=== PATIENT | male | born 1970 | race American Indian/Alaskan Native ===

== ENCOUNTER 2018-11-25 11:31 | Emergency (ER) | payer OTHER ==
[2018-11-25 11:44] VITALS: BP 155/104
--- NOTE | 2018-11-25 11:48 | Emergency Department Report ---
Blank Doc - Documentation Documentation: presents with cc of yesterday vomitting/ flank pain, states went to [place] yes terday, was scanned and dx with GB stones/acute kidney injury, has paperwork in hand states nausea and pain is not resolved This initial assessment diagnostic orders/clinical plan/treatment (s) is/Are subject change based on patient's health status, clinical progression and re- assessment by fellow clinical providers in the ED. Further treatment and work-up at subsequent clinical providers discretion. Patient/guardians urged not to elope from their condition may be serious if not clinically assessed and managed. Initial order include: ua,cbc,cmp ACC evaluate
[2018-11-25 12:51] LABS: Basophils % (Auto) 0.2 % (0.0-1.8); Eosinophils % (Auto) 0.7 % (0.0-4.3); Hematocrit 50.2 % (35.5-45.6); Lymphocytes # (Auto) 0.6 K/mm3 (1.2-5.4); Lymphocytes % (Auto) 9.7 % (13.4-35.0); Mean Corpuscular HGB Conc 34 % (32-34); Mean Corpuscular Volume 83 fl (84-94); Monocytes # (Auto) 0.5 K/mm3 (0.0-0.8); Monocytes % (Auto) 8.6 % (0.0-7.3); Platelet Count 146 K/mm3 (140-440); Red Blood Count 6.03 M/mm3 (3.65-5.03); Red Cell Distribution Width 13.6 % (13.2-15.2)
[2018-11-25 13:09] LABS: Albumin 3.8 g/dL (3.9-5); Calcium 8.8 mg/dL (8.4-10.2)
[2018-11-25] MEDS ORDERED: NACL 0.9% 1000 ML 1,000 ML IV ONE (14:30)
--- NOTE | 2018-11-25 14:31 | Emergency Department Report ---
Vomiting/Diarrhea - HPI Chief Complaint: Nausea/Vomiting/Diarrhea Stated Complaint: VOMITING/BACK PAIN Time Seen by Provider: 11/25/18 11:40 Duration: 2 Days Severity: moderate Nausea/Vomiting Severity: Moderate Diarrhea Severity: None Pain Location: Generalized Pain Severity: Moderate Symptoms: Yes Able to Tolerate Fluids, No Watery Diarrhea, No Bloody diarrhea, No Fever, No Recent Unusual Foods, No Recent Untreated Water, No Recent use of Antibiotics, No Family w/ Similar Symptoms, No Contacts w/ Similar Symptoms, No Rash, No Hematuria, No Recent URI Symptoms Other History: This is a 48-year-old -[place] male presents with nausea and vomiting, and abdominal pain since yesterday. Patient states he woke up yesterday morning around 3 AM nauseous and sharp abdominal pain. Patient states shortly after he started vomiting every 10-15 minutes. She went to [place] around 11 AM and was diagnosed with kidney stones. Patient states she was given several IV fluid and pain medication and sent home with tramadol and Zofran. Patient states Zofran 4 and an tramadol is not controllable symptoms. He is still vomiting every 15-20 minutes. He wanted to know if he can have surgery to remove kidney stones. He denies fever, diarrhea, chest pain, or lighthead edness. ED Review of Systems ROS: Stated complaint: VOMITING/BACK PAIN Other details as noted in HPI Constitutional: denies: chills, fever Respiratory: denies: cough, shortness of breath, wheezing Cardiovascular: denies: chest pain, palpitations Gastrointestinal: abdominal pain, nausea, vomiting. denies: diarrhea Genitourinary: denies: urgency, dysuria Skin: denies: rash, lesions Neurological: denies: headache, weakness, paresthesias Psychiatric: denies: anxiety, depression ED Past Medical Hx - Past Medical History Previous Medical History?: No - Surgical History Past Surgical History?: No - Social History Smoking Status: Never Smoker Substance Use Type: Alcohol Vomiting Diarrhea Exam - Exam General: Vital signs noted. No distress. Alert and acting appropriately. HEENT: Yes Moist Mucous Membranes, No Pharyngeal Erythema, No Pharyngeal Exudates, No Rhinorrhea, No Conjuctival Injection, No Frontal Tenderness, No Maxillary Tenderness Neck: No Adenopathy, No Rigidity Lungs: Yes Clear Lung Sounds, Yes Good Air Exchange, No Wheezes, No Stridor, No Cough, No Nasal Flaring, No Retractions, No Use of Accessory Muscles Heart exam: Regular: Yes, Murmur: No, Tachycardia: No Abdomen: Tenderness: Yes (left lower quadrant), Peritoneal Signs: No, Distention: No, Hyperactive Bowel sounds: No Skin exam: Rash: No, Edema: No, Normal turgor: Yes Neurologic: Alert and oriented, no deficits. Musculoskeletal: Unremarkable. ED Course Vital Signs 11/25/18 11:40 Temperature 98.1 F Pulse Rate 88 Respiratory 20 Rate Blood Pressure 155/104 O2 Sat by Pulse 96 Oximetry ED Medical Decision Making - Lab Data Result diagrams: 11/25/18 12:33 11/25/18 12:33 Lab Results 11/25/18 11/25/18 Range/Units 12:33 12:33 WBC 5.8 (4.5-11.0) K/mm3 RBC 6.03 H (3.65-5.03) M/mm3 Hgb 17.0 H (11.8-15.2) gm/dl Hct 50.2 H (35.5-45.6) % MCV 83 L (84-94) fl MCH 28 (28-32) pg MCHC 34 (32-34) % RDW 13.6 (13.2-15.2) % Plt Count 146 (140-440) K/mm3 Lymph % (Auto) 9.7 L (13.4-35.0) % Hutchinson % (Auto) 8.6 H (0.0-7.3) % Eos % (Auto) 0.7 (0.0-4.3) % Baso % (Auto) 0.2 (0.0-1.8) % Lymph # 0.6 L (1.2-5.4) K/mm3 Hutchinson # 0.5 (0.0-0.8) K/mm3 Eos # 0.0 (0.0-0.4) K/mm3 Baso # 0.0 (0.0-0.1) K/mm3 Seg Neutrophils % 80.8 H (40.0-70.0) % Seg Neutrophils # 4.7 (1.8-7.7) K/mm3 Sodium 135 L (137-145) mmol/L Potassium 4.2 (3.6-5.0) mmol/L Chloride 99.2 (98-107) mmol/L Carbon Dioxide 23 (22-30) mmol/L Anion Gap 17 mmol/L BUN 25 H (9-20) mg/dL Creatinine 1.9 H (0.8-1.5) mg/dL Estimated GFR 38 ml/min BUN/Creatinine Ratio 13 % Glucose 145 H (75-100) mg/dL Calcium 8.8 (8.4-10.2) mg/dL Total Bilirubin 1.20 (0.1-1.2) mg/dL AST 51 H (5-40) units/L ALT 37 (7-56) units/L Alkaline Phosphatase 58 (35-129) units/L Total Protein 7.2 (6.3-8.2) g/dL Albumin 3.8 L (3.9-5) g/dL Albumin/Globulin Ratio 1.1 % - Medical Decision Making Patient is stable and was examined by this provider and fast. Vitals stable. Obtained CMP, CBC, and UA. Some signs of dehydration and elevated liver enzymes. I think I initiated. Patient given 1 L normal saline IV. Patient seen and [facility] emergency room yesterday with papers at bedside with diagnosis of nephrolithiasis. He was started on Zofran and tramadol and instructed to increase fluids. Patient instructed to continue current treatment. Given a referral to urology for follow-up. Discussed plan with patient and agreed to plan. Discharged home in stable condition. Follow up with PCP in 2-3 days. Critical care attestation.: If time is entered above; I have spent that time in minutes in the direct care of this critically ill patient, excluding procedure time. ED Disposition Clinical Impression: Nausea and vomiting in adult, Dehydration Abdominal pain Qualifiers: Abdominal location: generalized Qualified Code(s): R10.84 - Generalized abdominal pain Disposition: DC-01 TO HOME OR SELFCARE Is pt being admited?: No Does the pt Need Aspirin: No Condition: Stable Instructions: Dehydration (ED), Acute Nausea and Vomiting (ED) Additional Instructions: Continue taking Zofran and tramadol as prescribed from [facility] for symptom relief. Return to the emergency room if increased nausea, vomiting, abdominal pain that is uncontrolled with pain medication. Follow-up with urologist from referrals below. Referrals: KAHLIL BLEDSOE MD [Primary Care Provider] - 3-5 Days [facility] [Provider Group] - 3-5 Days [facility] [Outside] - 3-5 Days [facility] [Outside] - 3-5 Days Forms: Work/School Release Form(ED) Time of Disposition: 15:17
== END 2018-11-25 15:21 | disposition home or self-care (01) ==
LOC: ED 11:31
DX: E86.0 Dehydration (principal)
CPT/HCPCS: 36415; 80053; 85025; 96360; 99283; J7030

== ENCOUNTER 2018-12-05 19:26 | Emergency (ER) | payer OTHER ==
[2018-12-05 19:36] VITALS: BP 159/90
--- NOTE | 2018-12-05 19:36 | Emergency Department Report ---
Blank Doc - Documentation Documentation: This is a 48-year-old male that presents with headache and HTN. Patient stated has elevated blood pressure mostly at nights. B/P now is 159/90 This initial assessment/diagnostic orders/clinical plan/treatment(s) is/are subject to change based on patient's health status, clinical progression and re- assessment by fellow clinical providers in the ED. Further treatment and workup at subsequent clinical providers discretion. Patient/guardians urged not to elope from the ED as their condition may be serious if not clinically assessed and managed. Initial orders include: 1- Patient sent to ACC for further evaluation and treatment 2- CT head
--- NOTE | 2018-12-05 20:32 | Cat Scan Report ---
PROCEDURE: CT HEAD/BRAIN WO CON TECHNIQUE: Computerized tomography of the head was performed without contrast material. Imaging was obtained in axial increments. CT DOSE LENGTH PRODUCT: 805.42 mGycm HISTORY: headache COMPARISONS: None . FINDINGS: The ventricular system is normal in size and configuration. There is no evidence for parenchymal volu me loss. There is no evidence for mass lesion, mass effect, midline shift, acute intracranial hemorrhage, or a cute ischemia/ infarction. No evidence for acute skull fracture is seen. No abnormality in the overlying scalp soft tissues is s een. Visualized paranasal sinuses are clear. IMPRESSION: Negative CT of the head. No acute intracranial process noted. This document is electronically signed by Lara Holley MD., December 05 2018 08:30:16 PM ET
--- NOTE | 2018-12-05 22:01 | Emergency Department Report ---
ED General Adult HPI - General Chief complaint: High BP Stated complaint: HIGH BLOOD PRESSURE Time Seen by Provider: 12/05/18 19:34 Source: patient Mode of arrival: Ambulatory Limitations: No Limitations - History of Present Illness Initial comments: This is a 48-year-old male who presents with headache and elevated blood pressure. Past medical history of diabetes and hypertension. Patient states he was taken off of amlodipine couple of months back because he was controlled with blood pressure with diet and exercise. Patient states he was diagnosed with kidney stones about 1-2 weeks ago and the blood pressure is elevated from it. Patient reports headache is during the night and blood pressure elevates to 190s over 130s. He denies chest pain, palpitations, shortness of breath, nausea or vomiting, lightheadedness. Location: head Radiation: non-radiation Severity scale (0 -10): 6 Quality: other (throbbing) Consistency: now resolved Improves with: none Worsens with: none Associated Symptoms: denies other symptoms Treatments Prior to Arrival: none - Related Data Previous Rx's Medication Instructions Recorded Last Taken Type Amlodipine Besylate [Norvasc] 2.5 mg PO DAILY #30 tab 12/05/18 Unknown Rx Allergies Allergy/AdvReac Type Severity Reaction Status Date / Time No Known Allergies Allergy Unverified 11/25/18 11:36 ED Review of Systems ROS: Stated complaint: HIGH BLOOD PRESSURE Other details as noted in HPI Constitutional: denies: chills, fever Respiratory: denies: cough, shortness of breath, wheezing Cardiovascular: denies: chest pain, palpitations Gastrointestinal: denies: abdominal pain, nausea, diarrhea Skin: denies: rash, lesions Neurological: headache. denies: weakness, paresthesias Psychiatric: denies: anxiety, depression ED Past Medical Hx - Past Medical History Previous Medical History?: Yes Hx Hypertension: Yes Hx Diabetes: Yes - Surgical History Past Surgical History?: No - Social History Smoking Status: Never Smoker Substance Use Type: None - Medications Home Medications: Home Medications Medication Instructions Recorded Confirmed Last Taken Type Amlodipine Besylate [Norvasc] 2.5 mg PO DAILY #30 tab 12/05/18 Unknown Rx ED Physical Exam - General Limitations: No Limitations General appearance: alert, in no apparent distress, obese - Respiratory Respiratory exam: Present: normal lung sounds bilaterally. Absent: respiratory distress - Cardiovascular Cardiovascular Exam: Present: regular rate, normal rhythm. Absent: systolic murmur, diastolic murmur, rubs, gallop - GI/Abdominal GI/Abdominal exam: Present: soft, normal bowel sounds - Neurological Exam Neurological exam: Present: alert, oriented X3, normal gait - Psychiatric Psychiatric exam: Present: normal affect, normal mood - Skin Skin exam: Present: warm, dry, intact, normal color. Absent: rash ED Course Vital Signs 12/05/18 19:35 Temperature 98.0 F Pulse Rate 87 Respiratory 18 Rate Blood Pressure 159/90 O2 Sat by Pulse 97 Oximetry ED Medical Decision Making - Radiology Data Radiology results: report reviewed PROCEDURE: CT HEAD/BRAIN WO CON TECHNIQUE: Computerized tomography of the head was performed without contrast material. Imaging was obtained in axial increments. CT DOSE LENGTH PRODUCT: 805.42 mGycm HISTORY: headache COMPARISONS: None . FINDINGS: The ventricular system is normal in size and configuration. There is no evidence for parenchymal volume loss. There is no evidence for mass lesion, mass effect, midline shift, acute intrac ranial hemorrhage, or acute ischemia/ infarction. No evidence for acute skull fracture is seen. No abnormality in the overlying scalp soft tissues is seen. Visualized paranasal sinuses are clear. IMPRESSION: Negative CT of the head. No acute intracranial process noted. - Medical Decision Making This is a 48 y.o. female that presents with headache and elevated blood pressure for 1 week. History of HTN and diabetes. Patient off amlodipine for several months. Patient is stable and was examined by me. Blood pressure stable on arrival. We'll restart amlodipine. Patient will need to follow-up with primary care provider within 5-[address] of the head obtained and dictated by radiologist. Negative CT of the head. No acute intracranial process noted. Inst ructed to start blood pressure log. Start amlodipine 2.5 mg by mouth daily. Discussed plan with patient and agreed to plan. No further questions noted by the patient. Discharged home in stable condition. Follow up with PCP in 1 week. Critical care attestation.: If time is entered above; I have spent that time in minutes in the direct care of this critically ill patient, excluding procedure time. ED Disposition Clinical Impression: Headache Qualifiers: Headache type: tension-type Headache chronicity pattern: acute headache Intractability: not intractable Qualified Code(s): G44.209 - Tension-type headache, unspecified, not intractable Hypertension Qualifiers: Hypertension type: essential hypertension Qualified Code(s): I10 - Essential (primary) hypertension Disposition: DC- TO HOME OR SELFCARE Is pt being admited?: No Does the pt Need Aspirin: No Condition: Stable Instructions: Hypertension (ED) Additional Instructions: Encourage stop smoking to reduce cardiovascular risk. Moderate caffeine consumption is acceptable. Begin and maintain aerobic exercise, with a goal of at least 30 minutes of moderate intensity, dynamic aerobic exercise (walking, jogging, cycling, or swimming) 5 days per week to total 150 minutes as tolerated or recommended by a physician. Take medication daily as prescribed. Follow up with Primary Care Provider in 1 week. Prescriptions: Amlodipine Besylate [Norvasc] 2.5 mg PO DAILY #30 tab Referrals: [facility] [Outside] - 3-5 Days [facility] [Outside] - 3-5 Days [facility] KAHLIL MORALES MD [Primary Care Provider] - 3-5 Days Forms: Work/School Release Form(ED) Time of Disposition: 22:22
== END 2018-12-05 22:28 | disposition home or self-care (01) ==
LOC: ED 19:26
DX: G44.209 Tension-type headache, unspecified, not intractable (principal); I10 Essential (primary) hypertension; E11.9 Type 2 diabetes mellitus without complications
CPT/HCPCS: 70450

== ENCOUNTER 2019-01-04 12:36 | Emergency (ER) | payer OTHER ==
[2019-01-04 13:06] VITALS: BP 118/74
--- NOTE | 2019-01-04 13:32 | Emergency Department Report ---
ED ENT HPI - General Chief complaint: Sore Throat Stated complaint: SORE THROAT Time Seen by Provider: 01/04/19 13:21 Source: patient Mode of arrival: Ambulatory Limitations: No Limitations - History of Present Illness Initial comments: This is a 48-year-old male nontoxic well in appearance with no signs of distress presents to the ED with complaint of sore throat. Patient stated was treated for strep and just finished his course of antibiotics. Patient stated symptoms are better but still has some sore throat. Denies any cough or any other URI s ymptoms. Denies any drooling or hoarseness. Denies any fever, chills, headache, nausea, vomiting, chest pain or SOB. Denies any other complaints. Denies any allergies. MD complaint: sore throat -: days(s) (5) Location: throat Severity: mild Severity scale (0 -10): 8 Consistency: constant Improves with: none Worsens with: none Associated Symptoms: sore throat. denies: fever, cough, gum swelling, toothache, pain with swallowing, tinnitus, hearing loss, discharge from ear, rhinorrhea - Related Data Previous Rx's Medication Instructions Recorded Last Taken Type Amlodipine Besylate [Norvasc] 2.5 mg PO DAILY #30 tab 12/05/18 Unknown Rx Ibuprofen [Motrin] 600 mg PO Q8H PRN #20 tablet 01/04/19 Unknown Rx Allergies Allergy/AdvReac Type Severity Reaction Status Date / Time No Known Allergies Allergy Verified 01/04/19 12:53 ED Dental HPI - General Chief complaint: Sore Throat Stated complaint: SORE THROAT Time Seen by Provider: 01/04/19 13:21 Source: patient Mode of arrival: Ambulatory Limitations: No Limitations - Related Data Previous Rx's Medication Instructions Recorded Last Taken Type Amlodipine Besylate [Norvasc] 2.5 mg PO DAILY #30 tab 12/05/18 Unknown Rx Ibuprofen [Motrin] 600 mg PO Q8H PRN #20 tablet 01/04/19 Unknown Rx Allergies Allergy/AdvReac Type Severity Reaction Status Date / Time No Known Allergies Allergy Verified 01/04/19 12:53 ED Review of Systems ROS: Stated complaint: SORE THROAT Other details as noted in HPI Constitutional: denies: chills, fever Eyes: denies: eye pain, eye discharge, vision change ENT: throat pain. denies: ear pain Respiratory: denies: cough, shortness of breath, wheezing Cardiovascular: denies: chest pain, palpitations Endocrine: no symptoms reported Gastrointestinal: denies: abdominal pain, nausea, diarrhea Genitourinary: denies: urgency, dysuria Musculoskeletal: denies: back pain, joint swelling, arthralgia Skin: denies: rash, lesions Neurological: denies: headache, weakness, paresthesias Psychiatric: denies: anxiety, depression Hematological/Lymphatic: denies: easy bleeding, easy bruising ED Past Medical Hx - Past Medical History Hx Hypertension: Yes Hx Diabetes: Yes - Social History Smoking Status: Current Every Day Smoker Substance Use Type: None - Medications Home Medications: Home Medications Medication Instructions Recorded Confirmed Last Taken Type Amlodipine Besylate [Norvasc] 2.5 mg PO DAILY #30 tab 12/05/18 Unknown Rx Ibuprofen [Motrin] 600 mg PO Q8H PRN #20 tablet 01/04/19 Unknown Rx ED Physical Exam - General Limitations: No Limitations General appearance: alert, in no apparent distress - Head Head exam: Present: atraumatic, normocephalic - Expanded ENT Exam Expanded Ear exam: Present: normal external inspection Mouth exam: Present: normal external inspection. Absent: drooling, trismus, muffled voice Teeth exam: Present: normal inspection Throat exam: Positive: other (Uvula midline. No abscess or swelling.). Negative: tonsillar erythema, tonsillomegaly, tonsillar exudate, R peritonsillar mass, L peritonsillar mass - Neck Neck exam: Present: normal inspection, full ROM. Absent: tenderness, meningismus, lymphadenopathy - Extremities Exam Extremities exam: Present: normal inspection, full ROM - Back Exam Back exam: Present: normal inspection, full ROM - Neurological Exam Neurological exam: Present: alert, oriented X3 - Psychiatric Psychiatric exam: Present: normal affect, normal mood - Skin Skin exam: Present: warm, dry, intact, normal color. Absent: rash ED Course Vital Signs 01/04/19 13:05 Temperature 98.6 F Pulse Rate 110 H Respiratory 16 Rate Blood Pressure 118/74 O2 Sat by Pulse 97 Oximetry - Reevaluation(s) Reevaluation #1: 01/04/19 13:30 Patient is speaking in full sentences with no signs of distress noted. ED Medical Decision Making - Medical Decision Making Strep test negative. Just finished his course of antibitocs. Will give motrin for pain. Vitals stable. Normal oropharynx exam. Patient was instructed to Follow-up with a primary care doctor in 3-5 days or if symptoms worsen and continue return to emergency room as soon as possible. At time of discharge, the patient does not seem toxic or ill in appearance. No acute signs of distress noted. Patient agrees to discharge treatment plan of care. No further questions noted by the patient. Critical care attestation.: If time is entered above; I have spent that time in minutes in the direct care of this critically ill patient, excluding procedure time. ED Disposition Clinical Impression: Sore throat Disposition: - TO HOME OR SELFCARE Is pt being admited?: No Does the pt Need Aspirin: No Condition: Stable Additional Instructions: Follow-up with a primary care doctor in 3-5 days or if symptoms worsen and continue return to emergency room as soon as possible. Prescriptions: Ibuprofen [Motrin] 600 mg PO Q8H PRN #20 tablet PRN Reason: Pain Referrals: PRIMARY MD CARLOS ENRIQUE [Referring] - 3-5 Days GERARD DANIELLE MD [Staff Physician] - 3-[address] [facility] [Outside] - 3-5 Days [facility] [Outside] - 3-5 Days Forms: Work/School Release Form(ED)
== END 2019-01-04 15:04 | disposition home or self-care (01) ==
LOC: ED 12:36
DX: J02.9 Acute pharyngitis, unspecified (principal); I10 Essential (primary) hypertension; E11.9 Type 2 diabetes mellitus without complications; F17.200 Nicotine dependence, unspecified, uncomplicated
CPT/HCPCS: 87116; 87430; 99283

== ENCOUNTER 2021-01-28 15:46 | Emergency (ER) | payer BC, OTHER ==
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
[2021-01-28] MEDS ORDERED: oxyCODONE /ACETAMINOPHEN 5-325MG TAB PO ONE (20:18)
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
[2021-01-28 21:47] VITALS: BP 120/83
== END 2021-01-28 22:05 | disposition home or self-care (01) ==
LOC: ED 15:46
DX: R51.9 Headache, unspecified (principal); M54.9 Dorsalgia, unspecified; Z79.899 Other long term (current) drug therapy; V49.49XA Driver injured in collision with other motor vehicles in traffic accident, initial encounter; Y93.89 Activity, other specified; Y92.488 Other paved roadways as the place of occurrence of the external cause; Y99.8 Other external cause status
CPT/HCPCS: 72040; 72100; 99283

== ENCOUNTER 2021-02-10 00:40 | Emergency (ER) | payer SELFPAY ==
[2021-02-10 01:43] VITALS: BP 190/107
== END 2021-02-10 03:38 | disposition left against medical advice (07) ==
LOC: ED 00:40
DX: I10 Essential (primary) hypertension (principal); Z53.21 Procedure and treatment not carried out due to patient leaving prior to being seen by health care provider

== ENCOUNTER 2021-08-28 05:28 | Emergency (ER) | payer BC ==
--- NOTE | 2021-08-28 06:08 | Event Note ---
ED Screening Note Date of service: 08/28/21 Time: 06:06 ED Screening Note: Patient is a 50-year-old -Indonesian male with a history of PE, hypertension and who is not vaccinated against COVID-19 presents to the ED with complaint of acute onset persistent nasal and sinus congestion, frontal sinus pressure, diffuse body aches and pains, shortness of breath, persistent cough, lack of appetite, and generalized weakness for the last 1 week. Patient states that his symptoms have worsened in the last 3 days. Patient denies dizziness, syncope, abdominal pain, nausea and vomiting or diarrhea, sore throat, fever and chills This initial assessment/diagnostic orders/clinical plan/treatment(s) is/are subject to change based on patients health status, clinical progression and re- assessment by fellow clinical providers in the ED. Further treatment and workup at subsequent clinical providers discretion. Patient/guardian urged not to elope from the ED as their condition may be serious if not clinically assessed and managed. Initial orders include: CBC, CMP, UA, chest x-ray, influenza test, DuoNeb,
[2021-08-28] MEDS ORDERED: ASPIRIN 325 MG TAB PO ONE (06:09)
[2021-08-28] MEDS ORDERED: IPRATROPIUM/ALBUTEROL SULFATE 3 ML AMPUL.NEB IH ONE ×2 (06:09→08:19)
[2021-08-28] MEDS ORDERED: methylPREDNISolone Sod Succinate 125 MG/2 ML INJ IV ONE (06:09)
[2021-08-28] MEDS ORDERED: ACETAMINOPHEN 500 MG TAB PO ONE (06:10)
[2021-08-28] MEDS ORDERED: SODIUM CHLORIDE 0.9% 1000 ML 1,000 ML IV ONE ×3 (06:10→08:07)
[2021-08-28 06:24] VITALS: BP 179/106
--- NOTE | 2021-08-28 06:53 | XRay Report ---
CHEST 2 VIEWS INDICATION / CLINICAL INFORMATION: Dyspnea. COMPARISON: None available. FINDINGS: SUPPORT DEVICES: None. HEART / MEDIASTINUM: The heart size and pulmonary vasculature are normal. LUNGS / PLEURA: Lung volumes are slightly decreased. No other significant pulmonary or pleural abnorm ality. No pneumothorax. ADDITIONAL FINDINGS: No significant additional findings. IMPRESSION: Mildly reduced lung volumes without other significant abnormality. Signer Name: Chung Lockhart MD Signed: 08/28/2021 6:49 AM Workstation Name: [id number]
[2021-08-28 07:34] LABS: Basophils % (Auto) 0.3 % (0.0-1.8); Hematocrit 52.8 % (35.5-45.6); Hemoglobin 17.4 gm/dl (11.8-15.2); Lymphocytes # (Auto) 0.6 K/mm3 (1.2-5.4); Lymphocytes % (Auto) 9.9 % (13.4-35.0); Mean Corpuscular HGB Conc 33 % (32-34); Mean Corpuscular Volume 85 fl (84-94); Monocytes % (Auto) 15.7 % (0.0-7.3); Platelet Count 141 K/mm3 (140-440); Red Blood Count 6.19 M/mm3 (3.65-5.03); Red Cell Distribution Width 13.6 % (13.2-15.2)
[2021-08-28 07:58] LABS: Albumin 3.5 g/dL (3.9-5); Calcium 8.4 mg/dL (8.4-10.2)
[2021-08-28] MEDS ORDERED: KETOROLAC 30 MG/1 ML INJ IV ONE (08:07)
[2021-08-28] MEDS ORDERED: INSULIN REGULAR, HUMAN 100 UNITS/1 ML IV ONE ×2 (08:07→12:17)
--- NOTE | 2021-08-28 08:10 | Emergency Department Report ---
- General Chief Complaint: Chest Pain Stated Complaint: CHEST PAIN PETE Time Seen by Provider: 08/28/21 08:06 Source: patient Mode of arrival: Ambulatory Limitations: No Limitations - History of Present Illness Initial Comments: Patient is a 50-year-old F [place]aur[place] male with past medical history hypertension diabetes who is presenting with Covid-like symptoms. Patient states that he has had a cough with mild shortness of breath for the past 3 to 4 days. Complaining of severe body aches in his arms and legs. Body aches estimated 7 out of 10 in severity. Is also has some nausea with vomiting and some stomach cramping but no diarrhea. Patient states food does taste strange. Unable to keep much down because of the nausea. Patient's had subjective fevers as well. Patient has not been vaccinated against COVID-19. - Related Data Previous Rx's Medication Instructions Recorded Last Taken Type Amlodipine Besylate [Norvasc] 2.5 mg PO DAILY #30 tab 12/05/18 Unknown Rx Ibuprofen [Motrin] 600 mg PO Q8H PRN #20 tablet 01/04/19 Unknown Rx Ketorolac [Toradol] 10 mg PO Q6H PRN #15 tablet 01/28/21 Unknown Rx methOCARBAMOL [Robaxin TAB] 750 mg PO Q8H PRN #14 tablet 01/28/21 Unknown Rx Albuterol Mdi (or & Nicu Only) 2 puff IH QID PRN #1 inhalation 08/28/21 Unknown Rx [ProAir HFA Inhaler] Azithromycin [Zithromax Z-JOSEFA] 250 mg PO DAILY #6 tablet 08/28/21 Unknown Rx Benzonatate [Tessalon Perles] 100 mg PO Q8HR #10 capsule 08/28/21 Unknown Rx Dexamethasone [Decadron] 6 mg PO DAILY #5 tablet 08/28/21 Unknown Rx HYDROcodone/APAP 5-325 [Ilfeld 1 each PO Q6HR PRN #14 tablet 08/28/21 Unknown Rx 5/325] Ondansetron [Zofran Odt] 4 mg PO Q8HR #20 tab.rapdis 08/28/21 Unknown Rx Allergies Allergy/AdvReac Type Severity Reaction Status Date / Time No Known Allergies Allergy Verified 01/04/19 12:53 ED Review of Systems ROS: Stated complaint: CHEST PAIN PETE Other details as noted in HPI Comment: All other systems reviewed and negative ED Past Medical Hx - Past Medical History Hx Hypertension: Yes Hx Diabetes: Yes - Surgical History Past Surgical History?: No - Social History Smoking Status: Never Smoker Substance Use Type: None - Medications Home Medications: Home Medications Medication Instructions Recorded Confirmed Last Taken Type Amlodipine Besylate [Norvasc] 2.5 mg PO DAILY #30 tab 12/05/18 Unknown Rx Ibuprofen [Motrin] 600 mg PO Q8H PRN #20 tablet 01/04/19 Unknown Rx Ketorolac [Toradol] 10 mg PO Q6H PRN #15 tablet 01/28/21 Unknown Rx methOCARBAMOL [Robaxin TAB] 750 mg PO Q8H PRN #14 tablet 01/28/21 Unknown Rx Albuterol Mdi (or & Nicu Only) 2 puff IH QID PRN #1 inhalation 08/28/21 Unknown Rx [ProAir HFA Inhaler] Azithromycin [Zithromax Z-JOSEFA] 250 mg PO DAILY #6 tablet 08/28/21 Unknown Rx Benzonatate [Tessalon Perles] 100 mg PO Q8HR #10 capsule 08/28/21 Unknown Rx Dexamethasone [Decadron] 6 mg PO DAILY #5 tablet 08/28/21 Unknown Rx HYDROcodone/APAP 5-325 [Ilfeld 1 each PO Q6HR PRN #14 tablet 08/28/21 Unknown Rx 5/325] Ondansetron [Zofran Odt] 4 mg PO Q8HR #20 tab.rapdis 08/28/21 Unknown Rx ED Physical Exam - General Limitations: No Limitations General appearance: alert, in no apparent distress - Head Head exam: Present: atraumatic, normocephalic - Eye Eye exam: Present: normal appearance - ENT ENT exam: Present: mucous membranes moist - Neck Neck exam: Present: normal inspection - Respiratory Respiratory exam: Present: normal lung sounds bilaterally. Absent: respiratory distress, wheezes, rales, rhonchi - Cardiovascular Cardiovascular Exam: Present: normal rhythm, tachycardia. Absent: systolic murmur, diastolic murmur, rubs, gallop - GI/Abdominal GI/Abdominal exam: Present: soft, normal bowel sounds. Absent: distended, tenderness, guarding, rebound - Rectal Rectal exam: Present: deferred - Extremities Exam Extremities exam: Present: normal inspection - Back Exam Back exam: Present: normal inspection - Neurological Exam Neurological exam: Present: alert, oriented X3 - Psychiatric Psychiatric exam: Present: normal affect, normal mood - Skin Skin exam: Present: warm, dry, intact, normal color. Absent: rash ED Course Vital Signs 08/28/21 08/28/21 06:21 08:35 Temperature 98.1 F Pulse Rate 106 H Pulse Rate [ 98 H Anterior Bilateral Throughout] Respiratory 18 Rate Respiratory 20 Rate [Anterior Bilateral Throughout] Blood Pressure 179/106 [Left] O2 Sat by Pulse 97 Oximetry ED Medical Decision Making - Lab Data Result diagrams: 08/28/21 07:19 08/28/21 07:19 Lab Results 08/28/21 08/28/21 Range/Units 07:19 07:19 WBC 6.1 (4.5-11.0) K/mm3 RBC 6.19 H (3.65-5.03) M/mm3 Hgb 17.4 H (11.8-15.2) gm/dl Hct 52.8 H (35.5-45.6) % MCV 85 (84-94) fl MCH 28 (28-32) pg MCHC 33 (32-34) % RDW 13.6 (13.2-15.2) % Plt Count 141 (140-440) K/mm3 Lymph % (Auto) 9.9 L (13.4-35.0) % Antelope % (Auto) 15.7 H (0.0-7.3) % Eos % (Auto) 0.0 (0.0-4.3) % Baso % (Auto) 0.3 (0.0-1.8) % Lymph # (Auto) 0.6 L (1.2-5.4) K/mm3 Antelope # (Auto) 1.0 H (0.0-0.8) K/mm3 Eos # (Auto) 0.0 (0.0-0.4) K/mm3 Baso # (Auto) 0.0 (0.0-0.1) K/mm3 Seg Neutrophils % 74.1 H (40.0-70.0) % Seg Neutrophils # 4.6 (1.8-7.7) K/mm3 Sodium 129 L (137-145) mmol/L Potassium 4.6 (3.6-5.0) mmol/L Chloride 93.9 L (98-107) mmol/L Carbon Dioxide 18 L (22-30) mmol/L Anion Gap 22 mmol/L BUN 27 H (9-20) mg/dL Creatinine 3.1 H (0.8-1.3) mg/dL Estimated GFR 26 ml/min BUN/Creatinine Ratio 9 % Glucose 361 H (75-100) mg/dL Calcium 8.4 (8.4-10.2) mg/dL Total Bilirubin 0.70 (0.1-1.2) mg/dL AST 19 (5-40) units/L ALT 21 (7-56) units/L Alkaline Phosphatase 70 (35-129) units/L Troponin T 0.030 H (0.00-0.029) ng/mL NT-Pro-B Natriuret Pep 43.18 (0-450) pg/mL Total Protein 7.3 (6.3-8.2) g/dL Albumin 3.5 L (3.9-5) g/dL Albumin/Globulin Ratio 0.9 % Triglycerides 174 H (2-149) mg/dL Cholesterol 150 (50-199) mg/dL LDL Cholesterol Direct 91 (50-130) mg/dL HDL Cholesterol 29 L (40-59) mg/dL Cholesterol/HDL Ratio 5.17 % - EKG Data -: EKG Interpreted by [facility] EKG shows normal: sinus rhythm, axis, intervals, QRS complexes, ST-T waves Rate: tachycardia (rate 107) - Radiology Data CHEST 2 VIEWS INDICATION / CLINICAL INFORMATION: Dyspnea. COMPARISON: None available. FINDINGS: SUPPORT DEVICES: None. HEART / MEDIASTINUM: The heart size and pulmonary vasculature are normal. LUNGS / PLEURA: Lung volumes are slightly decreased. No other significant pulmonary or pleural abnormality. No pneumothorax. ADDITIONAL FINDINGS: No significant additional findings. IMPRESSION: Mildly reduced lung volumes without other significant abnormality. Signer Name: Chung Lockhart MD Signed: 08/28/2021 6:49 AM Workstation Name: [id number] - Medical Decision Making Patient is a 50-year-old gentleman with some nausea vomiting and Covid-like symptoms. Patient does exhibit some signs of dehydration from the nausea vomiting and the increased blood sugar. Patient given 5 of insulin hydrated with 3 L of fluid to correct his low sodium. Patient is nausea is controlled I believe he is good candidate for outpatient treatment. No infiltrate seen is O2 sats within normal limits. Encouraged the patient get outpatient COVID-19 testing. Patient started on medications for symptom control. Critical care attestation.: If time is entered above; I have spent that time in minutes in the direct care of this critically ill patient, excluding procedure time. ED Disposition Clinical Impression: Suspected COVID-19 virus infection, Acute bronchitis, Dehydration, Hyponatremia, Hyperglycemia, Nausea & vomiting Disposition: 01 HOME / SELF CARE / HOMELESS Is pt being admited?: No Does the pt Need Aspirin: No Condition: Stable Instructions: Acute Bronchitis (ED), Nausea, Adult, Dehydration, Adult, [id number], Rehydration, Adult, COVID-19 Frequently Asked Questions, Infection Prevention in the Home Additional Instructions: Is strongly encouraged that she get tested for COVID-19. Unfortunately we do not have a rapid test to test you at this time. Most urgent care facilities and do offer same-day testing. There are also multiple testing sites throughout the city. Please get your prescriptions filled to help with symptom control. Is also advised that you buy a home pulse oximeter. These can be found at most local pharmacies such as [facility]. Please check your oxygen saturation level and if you are resting oxygen saturation level is less than 90% please return to the emergency department immediately. Referrals: PRIMARY CARE, [Primary Care Provider] - 3-5 Days Time of Disposition: 11:11
[2021-08-28 08:14] LABS: Chol/HDL Ratio 5.17 %
[2021-08-28] MEDS ORDERED: HYDROcodone/ACETAMINOPHEN 7.5-325MG TAB PO ONE (09:25)
[2021-08-28] MEDS ORDERED: SODIUM CHLORIDE 0.9% 1000 ML 1,000 ML IV SCH (12:15)
--- NOTE | 2021-08-29 12:10 | Electrocardiograph Report ---
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
== END 2021-08-28 14:28 | disposition home or self-care (01) ==
LOC: ED 05:28
DX: J20.9 Acute bronchitis, unspecified (principal); E86.0 Dehydration; E87.1 Hypo-osmolality and hyponatremia; E11.65 Type 2 diabetes mellitus with hyperglycemia; I10 Essential (primary) hypertension; Z20.822 Contact with and (suspected) exposure to COVID-19
CPT/HCPCS: 36415; 71046; 80053; 80061; 82962; 83880; 84484; 85025; 93005; 94640; 96361; 96374; 96375; 99284; J2930; J7030; U0003; 94644; Q0162; Q9967; J1815

== ENCOUNTER 2021-10-29 16:53 | Emergency (ER) | payer BC ==
[2021-10-29 17:01] VITALS: BP 128/81
--- NOTE | 2021-10-29 17:30 | Emergency Department Report ---
ED Rash HPI - HPI Chief Complaint: Headache Stated Complaint: HEADACHE Time Seen by Provider: 10/29/21 17:20 Duration: 2 Days Location: Head Severity: mild Other History: Chief complaint: "I am embarrassed to say what really is going on.". HPI: This a 51-year-old male with history of hypertension diabetes mellitus who has tingling and dryness of the lip and lesions on his chin after sexual intercourse. Mild symptoms. He denies headache, denies sore throat. Denies urethral discharge. ED Review of Systems ROS: Stated complaint: HEADACHE Other details as noted in HPI Constitutional: denies: fever, malaise ENT: denies: throat pain Respiratory: denies: cough, shortness of breath Neurological: denies: headache ED Past Medical Hx - Past Medical History Previous Medical History?: Yes Hx Hypertension: Yes Hx Diabetes: Yes - Social History Smoking Status: Never Smoker Substance Use Type: None - Medications Home Medications: Home Medications Medication Instructions Recorded Confirmed Last Taken Type Amlodipine Besylate [Norvasc] 2.5 mg PO DAILY #30 tab 12/05/18 10/29/21 Unknown Rx Ibuprofen [Motrin] 600 mg PO Q8H PRN #20 tablet 01/04/19 10/29/21 Unknown Rx Ketorolac [Toradol] 10 mg PO Q6H PRN #15 tablet 01/28/21 10/29/21 Unknown Rx methOCARBAMOL [Robaxin TAB] 750 mg PO Q8H PRN #14 tablet 01/28/21 10/29/21 Unknown Rx Albuterol Mdi (or & Nicu Only) 2 puff IH QID PRN #1 inhalation 08/28/21 10/29/21 Unknown Rx [ProAir HFA Inhaler] Azithromycin [Zithromax Z-JOSEFA] 250 mg PO DAILY #6 tablet 08/28/21 10/29/21 Unknown Rx Benzonatate [Tessalon Perles] 100 mg PO Q8HR #10 capsule 08/28/21 10/29/21 Unknown Rx Dexamethasone [Decadron] 6 mg PO DAILY #5 tablet 08/28/21 10/29/21 Unknown Rx HYDROcodone/APAP 5-325 [Falls 1 each PO Q6HR PRN #14 tablet 08/28/21 10/29/21 Unknown Rx 5/325] Ondansetron [Zofran Odt] 4 mg PO Q8HR #20 tab.rapdis 08/28/21 10/29/21 Unknown Rx Acyclovir 400 mg PO TID 7 Days #21 10/29/21 Unknown Rx Rash Exam - Exam General: Vital signs noted. No distress. Alert and acting appropriately. No lesions involving the lip, cluster of 4 papules on the left chin HEENT: No Periorbital Edema, No Conjuctival Injection, No Chemosis, No Perioral Edema, No Tongue Edema, No Uvular Edema, No Compromised Airway, No Drooling ED Course Vital Signs 10/29/21 17:00 Temperature 97.7 F Pulse Rate 79 Respiratory 18 Rate Blood Pressure 128/81 [Right] O2 Sat by Pulse 98 Oximetry ED Medical Decision Making - Medical Decision Making Differential diagnosis includes: HSV stomatitis, contact dermatitis, tinea infection. We will treat for HSV stomatitis with Valtrex. Discharged home Critical care attestation.: If time is entered above; I have spent that time in minutes in the direct care of this critically ill patient, excluding procedure time. ED Disposition Clinical Impression: Stomatitis Disposition: 01 HOME / SELF CARE / HOMELESS Is pt being admited?: No Does the pt Need Aspirin: No Condition: Stable Instructions: Stomatitis, Deeh-oh-Nhux Prescriptions: Acyclovir 400 mg PO TID 7 Days #21 Referrals: MIKE EATON MD [Staff Physician] - 3-5 Days
== END 2021-10-29 20:26 | disposition home or self-care (01) ==
LOC: ED 16:53
DX: K12.1 Other forms of stomatitis (principal); I10 Essential (primary) hypertension; E11.8 Type 2 diabetes mellitus with unspecified complications
CPT/HCPCS: 82962; 99282

== ENCOUNTER 2022-02-18 18:25 | Inpatient (IN) | payer BC ==
[2022-02-18] MEDS ORDERED: ASPIRIN 325 MG TAB PO ONE (18:43)
[2022-02-18 19:17] LABS: Basophils % (Auto) 0.3 % (0.0-1.8); Eosinophils # (Auto) 0.1 K/mm3 (0.0-0.4); Eosinophils % (Auto) 0.5 % (0.0-4.3); Hematocrit 50.9 % (35.5-45.6); Hemoglobin 17.1 gm/dl (11.8-15.2); Lymphocytes % (Auto) 10.2 % (13.4-35.0); Mean Corpuscular HGB Conc 34 % (32-34); Mean Corpuscular Volume 83 fl (84-94); Monocytes # (Auto) 0.9 K/mm3 (0.0-0.8); Monocytes % (Auto) 8.9 % (0.0-7.3); Platelet Count 240 K/mm3 (140-440); Red Blood Count 6.11 M/mm3 (3.65-5.03); Red Cell Distribution Width 13.5 % (13.2-15.2)
--- NOTE | 2022-02-18 19:32 | XRay Report ---
CHEST 2 VIEWS INDICATION / CLINICAL INFORMATION: chest pain. FINDINGS: SUPPORT DEVICES: None. HEART / MEDIASTINUM: No significant abnormality. LUNGS / PLEURA: No significant pulmonary or pleural abnormality. No pneumothorax. ADDITIONAL FINDINGS: No significant additional findings. IMPRESSION: 1. No acute findings. Signer Name: Donald Mei MD Signed: 02/18/2022 7:27 PM Workstation Name: [email or web address]
[2022-02-18 19:37] LABS: Albumin 4.6 g/dL (3.9-5); Calcium 10.1 mg/dL (8.4-10.2)
[2022-02-18 19:57] LABS: Chol/HDL Ratio 3.68 %
--- NOTE | 2022-02-18 20:24 | History and Physical Report ---
History of Present Illness Chief complaint: My chest hurts History of present illness: 51 YO Male with HTN, DM, DVT on therapeutic anticoagulation with Xarelto presents to ED for evaluation. Patient states "my chest hurts". Patient states that he has experienced chest pain over the past 2 days. Patient states that pain is 4/10, initially intermittent but has become more constant, radiates to his left shoulder, associated with nausea, associated with 2 episodes of vomiting. Patient denies any decreased exercise tolerance. 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 Patient acknowledges ingestion of the dietary supplement creatine. Patient transported to [facility] via private vehicle for further care and evaluation of the aforementioned symptoms. The patient was seen and evaluated in the emergency department. All lab and imaging studies reviewed. Patient found to clavicle symptoms consistent with angina as well as diastolic CHF. Patient admitted to telemetry and in itiated on ACS protocol. Cardiology team consulted in ED. Patient denies fever, chills, palpitation, productive cough, skin rash, recent ill contact, hematuria, or known exposure to COVID-19. No prior admission for review. All medication listed at time of admission has been reconciled. Advanced care planning conducted in ED. Past History Past Medical History: diabetes, hypertension Past Surgical History: No surgical history, Other (Reviewed) Social history: single. denies: smoking, alcohol abuse, prescription drug abuse Family history: diabetes, hypertension Medications and Allergies Allergies Allergy/AdvReac Type Severity Reaction Status Date / Time No Known Allergies Allergy Verified 10/29/21 17:27 Home Medications Medication Instructions Recorded Confirmed Last Taken Type Amlodipine Besylate [Norvasc] 2.5 mg PO DAILY #30 tab 12/05/18 10/29/21 Unknown Rx Ibuprofen [Motrin] 600 mg PO Q8H PRN #20 tablet 01/04/19 10/29/21 Unknown Rx Ketorolac [Toradol] 10 mg PO Q6H PRN #15 tablet 01/28/21 10/29/21 Unknown Rx methOCARBAMOL [Robaxin TAB] 750 mg PO Q8H PRN #14 tablet 01/28/21 10/29/21 Unknown Rx Albuterol Mdi (or & Nicu Only) 2 puff IH QID PRN #1 inhalation 08/28/21 10/29/21 Unknown Rx [ProAir HFA Inhaler] Azithromycin [Zithromax Z-JOSEFA] 250 mg PO DAILY #6 tablet 08/28/21 10/29/21 Unknown Rx Benzonatate [Tessalon Perles] 100 mg PO Q8HR #10 capsule 08/28/21 10/29/21 Unknown Rx Dexamethasone [Decadron] 6 mg PO DAILY #5 tablet 08/28/21 10/29/21 Unknown Rx HYDROcodone/APAP 5-325 [[place] 1 each PO Q6HR PRN #14 tablet 08/28/21 10/29/21 Unknown Rx 5/325] Ondansetron [Zofran Odt] 4 mg PO Q8HR #20 tab.rapdis 08/28/21 10/29/21 Unknown Rx Acyclovir 400 mg PO TID 7 Days #21 10/29/21 Unknown Rx Review of Systems Constitutional: no weight loss, no weight gain, no fever, no chills Ears, nose, mouth and throat: no ear pain, no ear discharge, no nose pain, no nasal congestion Cardiovascular: chest pain, decreased exercise tolerance Respiratory: no cough, no cough with sputum, no hemoptysis, no shortness of breath Gastrointestinal: nausea, vomiting, no abdominal pain, no diarrhea, no change in bowel habits Genitourinary Male: no hematuria, no flank pain, no discharge, no urinary frequency, no urinary hesitancy, no nocturia, no genital sores Rectal: no pain, no incontinence, no bleeding Musculoskeletal: no neck stiffness, no neck pain, no shooting arm pain, no arm numbness/tingling, no shooting leg pain Integumentary: no rash, no pruritis, no redness Neurological: no head injury, no transient paralysis, no weakness, no parathesias, no tingling, no seizures, no syncope Psychiatric: no anxiety, no memory loss, no change in sleep habits, no insomnia, no change in appetite, no change in libido, no disorientation Endocrine: no cold intolerance, no polyphagia, no excessive thirst, no polydipsia, no polyuria, no nocturia, no excessive sweating Hematologic/Lymphatic: no easy bruising, no easy bleeding Allergic/Immunologic: no urticaria, no allergic rhinitis Exam - Constitutional Vitals: Temp Pulse Resp BP Pulse Ox 97.3 F L 71 16 102/51 96 02/18/22 18:38 02/18/22 18:38 02/18/22 18:38 02/18/22 18:38 02/18/22 18:38 General appearance: Present: mild distress - EENT Eyes: Present: PERRL ENT: hearing intact, clear oral mucosa - Neck Neck: Present: supple, normal ROM - Respiratory Respiratory effort: normal Respiratory: bilateral: CTA - Cardiovascular Heart Sounds: Present: S1 & S2. Absent: rub, click - Extremities Extremities: pulses symmetrical, No edema Peripheral Pulses: within normal limits - Abdominal General gastrointestinal: Present: soft, non-tender, non-distended, normal bowel sounds Male genitourinary: Present: normal - Integumentary Integumentary: Present: clear, warm, dry - Musculoskeletal Musculoskeletal: gait normal, strength equal bilaterally - Psychiatric Psychiatric: appropriate mood/affect, intact judgment & insight - Neurologic Neurologic: CNII-XII intact, moves all extremities HEART Score - HEART Score Troponin: Troponin T 0.101 ng/mL (0.00-0.029) H* 02/18/22 18:59 Results - Labs CBC & Chem 7: 02/18/22 18:59 02/18/22 18:59 Labs: Abnormal lab results 02/18/22 02/18/22 Range/Units 18:59 18:59 RBC 6.11 H (3.65-5.03) M/mm3 Hgb 17.1 H (11.8-15.2) gm/dl Hct 50.9 H (35.5-45.6) % MCV 83 L (84-94) fl Lymph % (Auto) 10.2 L (13.4-35.0) % Mccreary % (Auto) 8.9 H (0.0-7.3) % Lymph # (Auto) 1.0 L (1.2-5.4) K/mm3 Mccreary # (Auto) 0.9 H (0.0-0.8) K/mm3 Seg Neutrophils % 80.1 H (40.0-70.0) % Sodium 126 L (137-145) mmol/L Chloride 88.2 L (98-107) mmol/L BUN 50 H (9-20) mg/dL Creatinine 5.2 H (0.8-1.3) mg/dL Glucose 267 H (75-100) mg/dL Total Bilirubin 2.30 H (0.1-1.2) mg/dL AST 60 H (5-40) units/L Troponin T 0.101 H* (0.00-0.029) ng/mL HDL Cholesterol 38 L (40-59) mg/dL Assessment and Plan - Patient Problems (1) Angina at rest Current Visit: Yes Status: Acute Plan to address problem: ACS protocol: Cardiology team consulted in ED, serial cardiac enzymes, EKG, telemetry, morphine, supplemental oxygen, nitro, aspirin, further care and evaluation as per cardiology team. (2) Diastolic CHF Current Visit: Yes Status: Acute Qualifiers: Heart failure chronicity: acute Qualified Code(s): I50.31 - Acute diastolic (congestive) heart failure Plan to address problem: Strict I's/O, monitor urine output every shift, daily weight, afterload reduction, blood pressure control, echocardiogram ordered and pending at time of admission. (3) Hyponatremia Current Visit: Yes Status: Acute Plan to address problem: IV fluid resuscitation therapy as clinically indicated. (4) Hypertension Current Visit: Yes Status: Acute Qualifiers: Hypertension type: primary hypertension Qualified Code(s): I10 - Essential (primary) hypertension Plan to address problem: Monitor blood pressure every shift, continue medical management. (5) Diabetes Current Visit: Yes Status: Acute Plan to address problem: Consistent carbohydrate diet, Accu-Chek, diet controlled, supportive care. (6) NICHOL (acute kidney injury) Current Visit: Yes Status: Acute Plan to address problem: Renal ultrasound, urine electrolytes, nephrology team consulted. Patient counseled regarding discontinuation of NSAID therapy as well as creatinine. Repeat BMP in a.m. to monitor serum creatinine as well as GFR. (7) History of DVT (deep vein thrombosis) Current Visit: Yes Status: Acute Plan to address problem: Continue therapeutic anticoagulation. (8) DVT prophylaxis Current Visit: Yes Status: Acute Plan to address problem: SCD to bilateral lower extremities while in bed, patient is ambulatory. (9) Advance care planning Current Visit: Yes Status: Acute Plan to address problem: Disease education conducted, care plan discussed, diagnoses discussed, prognosis discussed, patient is full code. Patient acknowledges understanding and agreement with care plan, +30 minutes. (10) Preventative health care Current Visit: Yes Status: Acute Plan to address problem: Preventative health: Patient counseled regarding balanced diet, increase physical activity, weight reduction, calculating macronutrients,
[2022-02-18] MEDS ORDERED: ALBUTEROL 2.5 MG/3 ML NEBU IH PRN (20:25)
[2022-02-18] MEDS ORDERED: ACETAMINOPHEN 325 MG TAB PO PRN (20:25)
[2022-02-18] MEDS ORDERED: ASPIRIN 81 MG TAB CHEW PO STA (20:25)
--- NOTE | 2022-02-18 20:35 | Emergency Department Report ---
ED Chest Pain HPI - General Chief Complaint: Chest Pain Stated Complaint: CHEST PAIN Time Seen by Provider: 02/18/22 20:12 Source: patient Mode of arrival: Ambulatory Limitations: No Limitations - History of Present Illness Initial Comments: Patient is a 51-year-old male presenting to ED with complaint of substernal/epigastric pain beginning yesterday. The pain is sharp in nature and radiates up to his left shoulder and scapula. He also reports associated nausea and vomiting. 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 Also reports history of DVT in 2014 for which he is on Xarelto. - Related Data Previous Rx's Medication Instructions Recorded Last Taken Type Amlodipine Besylate [Norvasc] 2.5 mg PO DAILY #30 tab 12/05/18 Unknown Rx Ibuprofen [Motrin] 600 mg PO Q8H PRN #20 tablet 01/04/19 Unknown Rx Ketorolac [Toradol] 10 mg PO Q6H PRN #15 tablet 01/28/21 Unknown Rx methOCARBAMOL [Robaxin TAB] 750 mg PO Q8H PRN #14 tablet 01/28/21 Unknown Rx Albuterol Mdi (or & Nicu Only) 2 puff IH QID PRN #1 inhalation 08/28/21 Unknown Rx [ProAir HFA Inhaler] Azithromycin [Zithromax Z-JOSEFA] 250 mg PO DAILY #6 tablet 08/28/21 Unknown Rx Benzonatate [Tessalon Perles] 100 mg PO Q8HR #10 capsule 08/28/21 Unknown Rx Dexamethasone [Decadron] 6 mg PO DAILY #5 tablet 08/28/21 Unknown Rx HYDROcodone/APAP 5-325 [[place] 1 each PO Q6HR PRN #14 tablet 08/28/21 Unknown Rx 5/325] Ondansetron [Zofran Odt] 4 mg PO Q8HR #20 tab.rapdis 08/28/21 Unknown Rx Acyclovir 400 mg PO TID 7 Days #21 10/29/21 Unknown Rx Allergies Allergy/AdvReac Type Severity Reaction Status Date / Time No Known Allergies Allergy Verified 10/29/21 17:27 Heart Score - HEART Score History: Moderately suspicious EKG: Normal Age: 45-65 Risk factors: 1-2 risk factors Troponin: 1-3x normal limit HEART Score: 4 - EKG Read Time Time EKG Completed: 18:28 EKG Read Time: 18:30 - Critical Actions Critical Actions: 4-6 pts:12-16.6% risk of adverse cardiac event. Should be admitted ED Review of Systems ROS: Stated complaint: CHEST PAIN Other details as noted in HPI Constitutional: denies: chills, fever Respiratory: denies: cough, shortness of breath, wheezing Cardiovascular: chest pain Gastrointestinal: abdominal pain, nausea, vomiting Genitourinary: denies: urgency, dysuria Musculoskeletal: denies: back pain, joint swelling, arthralgia Skin: denies: rash, lesions Neurological: denies: headache, weakness, paresthesias Psychiatric: denies: anxiety, depression ED Past Medical Hx - Past Medical History Previous Medical History?: Yes Hx Hypertension: Yes Hx Diabetes: Yes - Surgical History Past Surgical History?: No - Social History Smoking Status: Never Smoker Substance Use Type: None - Medications Home Medications: Home Medications Medication Instructions Recorded Confirmed Last Taken Type Amlodipine Besylate [Norvasc] 2.5 mg PO DAILY #30 tab 12/05/18 10/29/21 Unknown Rx Ibuprofen [Motrin] 600 mg PO Q8H PRN #20 tablet 01/04/19 10/29/21 Unknown Rx Ketorolac [Toradol] 10 mg PO Q6H PRN #15 tablet 01/28/21 10/29/21 Unknown Rx methOCARBAMOL [Robaxin TAB] 750 mg PO Q8H PRN #14 tablet 01/28/21 10/29/21 Unknown Rx Albuterol Mdi (or & Nicu Only) 2 puff IH QID PRN #1 inhalation 08/28/21 10/29/21 Unknown Rx [ProAir HFA Inhaler] Azithromycin [Zithromax Z-JOSEFA] 250 mg PO DAILY #6 tablet 08/28/21 10/29/21 Unknown Rx Benzonatate [Tessalon Perles] 100 mg PO Q8HR #10 capsule 08/28/21 10/29/21 Unknown Rx Dexamethasone [Decadron] 6 mg PO DAILY #5 tablet 08/28/21 10/29/21 Unknown Rx HYDROcodone/APAP 5-325 [[place] 1 each PO Q6HR PRN #14 tablet 08/28/21 10/29/21 Unknown Rx 5/325] Ondansetron [Zofran Odt] 4 mg PO Q8HR #20 tab.rapdis 08/28/21 10/29/21 Unknown Rx Acyclovir 400 mg PO TID 7 Days #21 10/29/21 Unknown Rx ED Physical Exam - General Limitations: No Limitations General appearance: alert, in no apparent distress - Head Head exam: Present: atraumatic, normocephalic - Neck Neck exam: Present: normal inspection. Absent: tenderness - Respiratory Respiratory exam: Present: normal lung sounds bilaterally. Absent: respiratory distress - Cardiovascular Cardiovascular Exam: Present: regular rate, normal rhythm, normal heart sounds - GI/Abdominal GI/Abdominal exam: Present: soft. Absent: distended, tenderness - Rectal Rectal exam: Present: deferred - Neurological Exam Neurological exam: Present: alert, oriented X3 - Psychiatric Psychiatric exam: Present: normal affect, normal mood - Skin Skin exam: Present: warm, dry, intact, normal color ED Course Vital Signs 02/18/22 18:38 Temperature 97.3 F L Pulse Rate 71 Respiratory 16 Rate Blood Pressure 102/51 [Left] O2 Sat by Pulse 96 Oximetry ED Medical Decision Making - Lab Data Result diagrams: 02/18/22 18:59 02/18/22 18:59 - Medical Decision Making EKG shows normal sinus rhythm with ventricular rate of 83 bpm. Normal axis intervals, QRS, ST segments and T waves. No acute findings on chest x-ray. Troponin elevated 0.101. Creatinine is elevated at 5.2 up from previous value of 3.1. Potassium is 5.0. I discussed the case with cardiology. Patient is currently on Xarelto. Cardiology recommends not initiating further anticoagulation at this time and will trend troponins. Will admit to hospitalist. Critical care attestation.: If time is entered above; I have spent that time in minutes in the direct care of this critically ill patient, excluding procedure time. ED Disposition Clinical Impression: NSTEMI (non-ST elevated myocardial infarction), Acute kidney injury superimposed on chronic kidney disease Disposition: ADMITTED INPATIENT Is pt being admited?: Yes Condition: Stable
[2022-02-18] MEDS ORDERED: SODIUM CHLORIDE 0.9% 1000 ML 1,000 ML IV ONE ×2 (21:04)
--- NOTE | 2022-02-18 21:43 | Ultrasound Report ---
ULTRASOUND RENAL INDICATION / CLINICAL INFORMATION: shola. COMPARISON: None available. FINDINGS: The right kidney measures 9.8 cm and the left kidney measures 10.7 cm. Both kidneys are small and dem onstrate thinning of the cortex. There is increased cortical echogenicity with loss of cortical medul ya distinction. There are no perinephric fluid collections. There is no hydronephrosis or solid re nal mass seen. Right renal cysts are present, largest measuring 1.7 cm, located at the midpole. The bladder is not fully distended but appears grossly unremarkable. Incidentally, there is cholelithiasis without sonographic wall thickening. IMPRESSION: 1. Renal findings suggestive of chronic medical renal disease. 2. No acute findings. No hydronephrosis. Signer Name: Jeffrey Colon MD Signed: 02/18/2022 9:38 PM Workstation Name: [id number]
[2022-02-18] MEDS: oxyCODONE /ACETAMINOPHEN 5-325MG TAB PO PRN (21:46)
[2022-02-18] MEDS: FAMOTIDINE 10 MG TAB PO SCH (22:30)
[2022-02-19 03:46] LABS: Calcium 9.2 mg/dL (8.4-10.2)
--- NOTE | 2022-02-19 09:23 | Consultation ---
History of Present Illness - Reason for Consult Consult date: 02/19/22 acute renal failure, chronic renal failure - History of Present Illness The patient is a 51 YO male with history notable for DM-2(since 2007), HTN(since 2010), HLD, DVT on Xarelto and CKD-4 who presented to [facility] ED 02/18/22 with c/o chest pain of 2 days duration. Patient states that the pain is 4/10, initially intermittent but has become more constant, radiates to his left shoulder, associated with nausea and vomiting. Patient denies any decreased exercise tolerance. 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 Patient acknowledges chronic Anabolic steroid intake and ingestion of the creatine. Patient denies fever, chills, palpitation, cough, skin rash, recent ill contact, dysuria, hematuria, abd pain, diarrhea, foamy urine, NSAID intake, dizziness and syncope. Labs notable for Creat 5.2, BUN 50 and Sodium 126. Patient admitted to telemetry and initiated on ACS protocol. Nephrology consulted for further evaluation and treatment of NICHOL. Past History Past Medical History: diabetes, hypertension, renal failure, other (DVT) Past Surgical History: No surgical history, Other (Reviewed) Social history: single. denies: smoking, alcohol abuse, prescription drug abuse Family history: diabetes, hypertension Medications and Allergies Allergies Allergy/AdvReac Type Severity Reaction Status Date / Time No Known Allergies Allergy Verified 10/29/21 17:27 Home Medications Medication Instructions Recorded Confirmed Last Taken Type AtorvaSTATin [Lipitor] 40 mg PO QHS 02/19/22 02/19/22 Unknown History Pioglitazone [Actos] 15 mg PO BID 02/19/22 02/19/22 Unknown History Rivaroxaban [Xarelto] 15 mg PO QDAY 02/19/22 02/19/22 Unknown History Zolpidem [Ambien] 10 mg PO QHS PRN 02/19/22 02/19/22 Unknown History cloNIDine [Catapres] 0.1 mg PO QHS 02/19/22 02/19/22 Unknown History Active Meds: Active Medications Acetaminophen (Acetaminophen 325 Mg Tab) 650 mg PO Q4H PRN PRN Reason: Pain MILD(1-3)/Fever >100.5/SALG[place]O Albuterol (Albuterol 2.5 Mg/3 Ml Nebu) 2.5 mg IH Q4HRT PRN PRN Reason: Shortness Of Breath Famotidine (Famotidine 10 Mg Tab) 10 mg PO BID [facility] Last Admin: 02/18/22 22:30 Dose: 10 mg Sodium Chloride (Nacl 0.9% 1000 Ml) 1,000 mls @ 75 mls/hr IV ONCE ONE Stop: 02/19/22 10:23 Last Admin: 02/19/22 01:56 Dose: 75 mls/hr Morphine Sulfate (Morphine 4 Mg/1 Ml Inj) 2 mg IV Q8H PRN PRN Reason: Pain , Severe (7-10) Ondansetron HCl (Ondansetron 4 Mg/2 Ml Inj) 4 mg IV Q8H PRN PRN Reason: Nausea And Vomiting Oxycodone/Acetaminophen (Oxycodone /Acetaminophen 5-325mg Tab) 1 tab PO Q6H PRN PRN Reason: Pain, Moderate (4-6) Last Admin: 02/18/22 21:46 Dose: 1 tab Sodium Chloride (Sodium Chloride 0.9% 10 Ml Flush Syringe) 10 ml IV BID [facility] Last Admin: 02/18/22 23:21 Dose: 10 ml Sodium Chloride (Sodium Chloride 0.9% 10 Ml Flush Syringe) 10 ml IV PRN PRN PRN Reason: LINE FLUSH Review of Systems All systems: negative Exam - Vital Signs Vital signs: Vital Signs Temp Pulse Resp BP Pulse Ox 97.3 F L 71 16 102/51 96 02/18/22 18:38 02/18/22 18:38 02/18/22 18:38 02/18/22 18:38 02/18/22 18:38 Results - Lab Results 02/18/22 18:59 02/19/22 03:10 Most recent lab results Calcium 9.2 mg/dL (8.4-10.2) 02/19/22 03:10 Assessment and Plan 1. Acute kidney injury: NICHOL superimposed on CKD vs advanced CKD. Vasomotor NICHOL superimposed on CKD-4 in the setting of hypotension and volume depletion. Renal US negative. Urine studies ordered. CKD in the setting of uncontrolled DM, HTN and Anabolic steroid use. Continue IV fluids. Monitor renal function. Creatinine leveled off. Avoid nephrotoxic agents. Meds dosage based on GFR. Monitor for [employer] needs. 2. FEN: Hyponatremia, improving, monitor. Anion-gap Metabolic acidosis, 2/2 NICHOL, Sod bicarb, monitor. Monitor lytes and volume status. 3. Chest pain / NSTEMI: Followed by Cards. Monitor. 4. DM, uncontrolled: A1C 9.9. On SSI. Monitor. 5. Hypertension: BP is low. Hold BP meds. Monitor BP. 6. Polycythemia, POA: ?2/2 volume depletion. Monitor. Subjective: Patient was seen and examined at the bedside. Examination: General appearance: well-developed, well-nourished, appears stated age, no distress HEENT: ATNC, pupils equal, no icterus Neck: trachea midline Respiratory: Clear to Auscultation Cardiology: regular, S1S2, no murmur Gastrointestinal: soft, normoactive bowel sounds, not tender, ND Integumentary: no rash Neurologic: AO, able to move extremities Ext: no edema noted
[2022-02-19] MEDS: FAMOTIDINE 10 MG TAB PO SCH ×2 (09:41→21:01)
[2022-02-19] MEDS: MORPHINE 4 MG/1 ML INJ IV PRN ×2 (09:42→18:07)
[2022-02-19] MEDS: ONDANSETRON 4 MG/2 ML INJ IV PRN (09:42)
--- NOTE | 2022-02-19 09:43 | Progress Note ---
Assessment and Plan Assessment and plan: #Angina at rest-improving #Atypical chest pain -per patient pain substernal/epigastric and worsened with eating -continue pepcid -troponin downtrending -TTE done, read pending -Cardiology team consulted #NSTEMI, type II -troponin 0.101-> 0.106 -> 0.088 -likely secondary to renal failure -EKG without acute changes -no intervention at this time #Chronic diastolic heart failure -TTE done, read pending -not in acute exacerbation #Hyponatremia -IV fluid resuscitation therapy as clinically indicated. #Hypertension #Hyponatremia -history of hypertension, patient with soft blood pressures while inpatient -will continue to monitor, no medications at this time #Type II Diabetes Mellitus with hyperglycemia -patient has taken oral medications and insulin in the past, currently taking nothing outpatient -Hgb A1C 9.9% -will start SSI w/ accuchecks for now -patient will require oral antihyperglycemics at discharge #NICHOL (acute kidney injury) on CKD -patient reports baseline SCr of 3.0 -Nephrology consulted, assistance appreciated -NETO pending -counseled to discontinue creatine use -avoid nephrotoxins and renally dose medications #History of DVT (deep vein thrombosis) -will continue xarelto #Advance care planning -Disease education conducted, care plan discussed, diagnoses discussed, prognosis discussed, patient is full code. Patient acknowledges understanding and agreement with care plan, +30 minutes. History Interval history: No acute events overnight. Patient reports taking xarelto, but has not taken any diabetes medications in months. He has indigestion and lower back pain which has started since admission. His chest pain has improved significantly. Hospitalist Physical - Physical exam Narrative exam: GENERAL: Well-developed well-nourished. In no acute distress. HEENT: Normocephalic. Atraumatic. CHEST/LUNGS: CTAB on room air HEART/CARDIOVASCULAR: RRR. No murmur, rubs or gallops appreciated. ABDOMEN: +BS. NT/ND. SKIN: No rashes noted. NEURO: No focal motor deficit. Follows all commands. MUSCULOSKELETAL: No joint effusion EXTREMITIES: No cyanosis, clubbing or edema. PSYCH: Cooperative. - Constitutional Vitals: Temp Pulse Resp BP Pulse Ox 98.0 F 79 18 99/31 98 02/19/22 03:11 02/19/22 03:11 02/19/22 03:11 02/19/22 03:11 02/19/22 09:25 General appearance: Present: mild distress HEART Score - HEART Score EKG: Normal Age: 45-65 Risk factors: 1-2 risk factors Troponin: Troponin T 0.088 ng/mL (0.00-0.029) H 02/19/22 03:10 Troponin: 1-3x normal limit - Critical Actions Critical Actions: 4-6 pts:12-16.6% risk of adverse cardiac event. Should be admitted Results - Labs CBC & Chem 7: 02/20/22 04:40 02/20/22 04:40 Labs: Laboratory Last Values WBC 9.6 K/mm3 (4.5-11.0) 02/18/22 18:59 RBC 6.11 M/mm3 (3.65-5.03) H 02/18/22 18:59 Hgb 17.1 gm/dl (11.8-15.2) H 02/18/22 18:59 Hct 50.9 % (35.5-45.6) H 02/18/22 18:59 MCV 83 fl (84-94) L 02/18/22 18:59 MCH 28 pg (28-32) 02/18/22 18:59 MCHC 34 % (32-34) 02/18/22 18:59 RDW 13.5 % (13.2-15.2) 02/18/22 18:59 Plt Count 240 K/mm3 (140-440) 02/18/22 18:59 Lymph % (Auto) 10.2 % (13.4-35.0) L 02/18/22 18:59 Gem % (Auto) 8.9 % (0.0-7.3) H 02/18/22 18:59 Eos % (Auto) 0.5 % (0.0-4.3) 02/18/22 18:59 Baso % (Auto) 0.3 % (0.0-1.8) 02/18/22 18:59 Lymph # (Auto) 1.0 K/mm3 (1.2-5.4) L 02/18/22 18:59 Gem # (Auto) 0.9 K/mm3 (0.0-0.8) H 02/18/22 18:59 Eos # (Auto) 0.1 K/mm3 (0.0-0.4) 02/18/22 18:59 Baso # (Auto) 0.0 K/mm3 (0.0-0.1) 02/18/22 18:59 Seg Neutrophils % 80.1 % (40.0-70.0) H 02/18/22 18:59 Seg Neutrophils # 7.7 K/mm3 (1.8-7.7) 02/18/22 18:59 Sodium 128 mmol/L (137-145) L 02/19/22 03:10 Potassium 4.8 mmol/L (3.6-5.0) 02/19/22 03:10 Chloride 93.2 mmol/L (98-107) L 02/19/22 03:10 Carbon Dioxide 21 mmol/L (22-30) L 02/19/22 03:10 Anion Gap 19 mmol/L 02/19/22 03:10 BUN 56 mg/dL (9-20) H 02/19/22 03:10 Creatinine 5.2 mg/dL (0.8-1.3) H 02/19/22 03:10 Estimated GFR 14 ml/min 02/19/22 03:10 BUN/Creatinine Ratio 11 % 02/19/22 03:10 Glucose 250 mg/dL (75-100) H 02/19/22 03:10 Hemoglobin A1c 9.9 % (4-6) H 02/18/22 18:59 Calcium 9.2 mg/dL (8.4-10.2) 02/19/22 03:10 Total Bilirubin 2.30 mg/dL (0.1-1.2) H 02/18/22 18:59 AST 60 units/L (5-40) H 02/18/22 18:59 ALT 54 units/L (7-56) 02/18/22 18:59 Alkaline Phosphatase 76 units/L (35-129) 02/18/22 18:59 Troponin T 0.088 ng/mL (0.00-0.029) H 02/19/22 03:10 Total Protein 7.9 g/dL (6.3-8.2) 02/18/22 18:59 Albumin 4.6 g/dL (3.9-5) 02/18/22 18:59 Albumin/Globulin Ratio 1.4 % 02/18/22 18:59 Triglycerides 121 mg/dL (2-149) 02/18/22 18:59 Cholesterol 140 mg/dL (50-199) 02/18/22 18:59 LDL Cholesterol Direct 82 mg/dL (50-130) 02/18/22 18:59 HDL Cholesterol 38 mg/dL (40-59) L 02/18/22 18:59 Cholesterol/HDL Ratio 3.68 % 02/18/22 18:59 Jasso/IV: Voiding Method Toilet Active Medications - Current Medications Current Medications: Generic Name Dose Route Start Last Admin Trade Name Freq PRN Reason Stop Dose Admin Acetaminophen 650 mg 02/18/22 20:25 Acetaminophen 325 Mg Tab PO Q4H PRN Pain MILD(1-3)/Fever >100.5/SAL[place]ADO Albuterol 2.5 mg 02/18/22 20:25 Albuterol 2.5 Mg/3 Ml Nebu IH Q4HRT PRN Shortness Of Breath Famotidine 10 mg 02/18/22 22:00 02/18/22 22:30 Famotidine 10 Mg Tab PO 10 mg BID DAR Administration Sodium Chloride 1,000 mls @ 75 mls/hr 02/18/22 21:04 02/19/22 01:56 Nacl 0.9% 1000 Ml IV 02/19/22 10:23 75 mls/hr ONCE ONE Administration Morphine Sulfate 2 mg 02/18/22 20:25 Morphine 4 Mg/1 Ml Inj IV Q8H PRN Pain , Severe (7-10) Ondansetron HCl 4 mg 02/18/22 20:25 Ondansetron 4 Mg/2 Ml Inj IV Q8H PRN Nausea And Vomiting Oxycodone/Acetaminophen 1 tab 02/18/22 20:25 02/18/22 21:46 Oxycodone /Acetaminophen 5-325mg Tab PO 1 tab Q6H PRN Administration Pain, Moderate (4-6) Sodium Chloride 10 ml 02/18/22 22:00 02/18/22 23:21 Sodium Chloride 0.9% 10 Ml Flush Syringe IV 10 ml BID DAR Administration Sodium Chloride 10 ml 02/18/22 20:25 Sodium Chloride 0.9% 10 Ml Flush Syringe IV PRN PRN LINE FLUSH
[2022-02-19] MEDS ORDERED: DEXTROSE 50% IN WATER (25GM) 50 ML SYRINGE IV PRN (11:00)
[2022-02-19] MEDS: SODIUM BICARBONATE 650 MG TAB PO SCH ×2 (13:05→21:01)
[2022-02-19] MEDS: INSULIN LISPRO 100 UNIT/ML SUB-Q SCH ×3 (13:06→21:18)
[2022-02-19] MEDS: SODIUM CHLORIDE 0.9% 1000 ML 1,000 ML IV SCH (15:35)
[2022-02-19 16:10] LABS: Bilirubin,Urine NEG (Negative); Blood,Urine NEG (Negative); Color,Urine Yellow (Yellow); Mucus,Urine FEW /HPF; RBC,Urine < 1.0 /HPF (0.0-6.0); Renal Epithelial Cells,Urine <1 /LPF
[2022-02-19 16:15] LABS: Creatinine,Urine 292.6 mg/dL (0.1-20.0); Protein/Creatinine Ratio,Urine 0.37
--- NOTE | 2022-02-19 18:51 | Progress Note ---
Subjective Date of service: 02/19/22 Interval history: CONSULT DICTATED CONSIDER CATH vs STRESS TEST IN A FEW DAYS Objective Vital Signs Temp Pulse Resp BP BP Pulse Ox 02/19/22 15:10 98.3 F 93/36 02/19/22 12:11 98.3 F 83/37 02/19/22 11:37 97 02/19/22 09:25 98 02/19/22 08:40 0 L 02/19/22 08:28 97.6 F 81 101/25 97 02/19/22 03:11 98.0 F 79 18 99/31 98 02/19/22 02:51 107/65 93 02/19/22 02:49 107/65 88 02/19/22 01:13 98 02/19/22 00:10 97.6 F 78 18 126/70 99 02/18/22 23:50 86 13 107/65 97 02/18/22 23:41 82 14 108/56 99 02/18/22 23:31 73 10 L 108/56 100 02/18/22 23:21 73 9 L 108/56 99 02/18/22 23:20 80 16 108/56 100 02/18/22 23:11 77 13 97/34 98 02/18/22 23:01 77 11 L 97/34 100 02/18/22 22:51 85 14 97/34 99 02/18/22 22:42 77 02/18/22 22:41 68 16 97/34 97 02/18/22 22:40 59 L 16 97/38 02/18/22 22:31 67 15 81/41 100 02/18/22 22:21 71 19 81/41 99 02/18/22 22:11 73 18 89/39 99 02/18/22 22:00 77 15 79/37 100 02/18/22 21:50 76 14 74/29 94 02/18/22 21:41 75 12 79/37 95 02/18/22 21:31 80 20 99/31 100 02/18/22 21:20 78 13 99/31 100 02/18/22 21:11 75 12 92/44 98 02/18/22 21:00 81 13 105/36 95 02/18/22 20:50 79 13 92/44 02/18/22 20:40 80 17 86/32 99 02/18/22 20:31 81 17 86/32 98 02/18/22 20:20 80 14 98 02/18/22 20:10 82 14 99 - Labs and Meds Cardiac Enzymes 02/18/22 Range/Units 18:59 AST 60 H (5-40) units/L Lipids 02/18/22 Range/Units 18:59 Triglycerides 121 (2-149) mg/dL Cholesterol 140 (50-199) mg/dL HDL Cholesterol 38 L (40-59) mg/dL Cholesterol/HDL Ratio 3.68 % CBC 02/18/22 Range/Units 18:59 WBC 9.6 (4.5-11.0) K/mm3 RBC 6.11 H (3.65-5.03) M/mm3 Hgb 17.1 H (11.8-15.2) gm/dl Hct 50.9 H (35.5-45.6) % Plt Count 240 (140-440) K/mm3 Lymph # (Auto) 1.0 L (1.2-5.4) K/mm3 Davis # (Auto) 0.9 H (0.0-0.8) K/mm3 Eos # (Auto) 0.1 (0.0-0.4) K/mm3 Baso # (Auto) 0.0 (0.0-0.1) K/mm3 Comprehensive Metabolic Panel 02/18/22 02/19/22 Range/Units 18:59 03:10 Sodium 126 L 128 L (137-145) mmol/L Potassium 5.0 4.8 (3.6-5.0) mmol/L Chloride 88.2 L 93.2 L (98-107) mmol/L Carbon Dioxide 22 21 L (22-30) mmol/L BUN 50 H 56 H (9-20) mg/dL Creatinine 5.2 H 5.2 H (0.8-1.3) mg/dL Glucose 267 H 250 H (75-100) mg/dL Calcium 10.1 9.2 (8.4-10.2) mg/dL AST 60 H (5-40) units/L ALT 54 (7-56) units/L Alkaline Phosphatase 76 (35-129) units/L Total Protein 7.9 (6.3-8.2) g/dL Albumin 4.6 (3.9-5) g/dL
[2022-02-19] MEDS ORDERED: HEPARIN 5,000 UNIT/1 ML VIAL SUB-Q SCH (22:00)
[2022-02-19] MEDS ORDERED: cloNIDine 0.1 MG TAB PO SCH (22:00)
[2022-02-20 05:20] LABS: Hematocrit 48.1 % (35.5-45.6); Hemoglobin 15.4 gm/dl (11.8-15.2); Mean Corpuscular HGB Conc 32 % (32-34); Mean Corpuscular Volume 83 fl (84-94); Platelet Count 185 K/mm3 (140-440); Red Blood Count 5.76 M/mm3 (3.65-5.03); Red Cell Distribution Width 13.5 % (13.2-15.2)
--- NOTE | 2022-02-20 05:44 | Consultation ---
DATE OF CONSULTATION: 02/19/2022 HISTORY OF PRESENT ILLNESS: The patient is a 51-year-old male with a history of multiple medical problems including hypertension, diabetes for many years, 2 episodes of DVT in the past, probable chronic kidney disease and chronic pain. 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 He describes sharp chest and epigastric pain with nausea and vomiting. Episodes have been going on for about 2 days with no fever, but some chills. There has been no bleeding or diarrhea. He describes pain as positional, sharp and burning. It seemed to improve after he vomited. He has had no exertional angina. He has had intermittent ankle swelling, but no shortness of breath. No cardiac history. His diet has been good. He describes weight loss. There has been no claudication. There have been no arrhythmias or dizziness. He does describe some snoring. PAST MEDICAL HISTORY: As described above. SOCIAL HISTORY: Smoking, none. Alcohol: No heavy use. PAST SURGICAL HISTORY: None. FAMILY HISTORY: Diabetes, hypertension. MEDICATIONS: See the nurse's list. ALLERGIES: None. REVIEW OF SYSTEMS: No other complaints or medical problems. He describes lumbosacral disk disease. PHYSICAL EXAMINATION: GENERAL: Well-developed, well-nourished, slightly overweight, in no acute distress. Alert, oriented, cooperative. Mental status normal. EYES, NOSE AND THROAT: Unremarkable. NECK: Reveals no JVD or bruits. Neck is supple, no masses. LUNGS: Clear. No labored respirations. CARDIAC: Regular rhythm, soft S4, no murmurs or rubs. ABDOMEN: Soft, nontender, no masses. EXTREMITIES: No cyanosis, clubbing or edema. Peripheral pulses are intact, but diminished. NEUROLOGIC: Grossly symmetrical. SKIN: Clear. IMPRESSION: 1. Chest pain and epigastric pain with associated nausea and vomiting: Consider a GI disorders. Please note that some of the aspects of his chest pain are atypical. With risk factors and slight elevation of the troponins, coronary disease also needs to be considered. Stress test or catheterization can be considered in a few days when acute renal failure and GI symptoms have improved. There are no acute electrocardiographic changes to suggest a coronary event. 2. Hypertension: Currently, he is mildly hypotensive, receiving IV fluids. 3. Longstanding insulin-dependent diabetes. 4. Mild hyperlipidemia. 5. Probable acute on chronic kidney disease. 6. History of deep venous thrombosis times 2 years ago, currently on anticoagulation. 7. Possible obstructive sleep apnea. 8. Intermittent ankle swelling, possibly secondary to kidney disease or venous insufficiency. 9. Chronic lumbosacral pain. 10. Possible peripheral arterial disease: Diminished pulses on ankle examination. PLAN: Stabilize hemodynamics. Monitor renal function. Consider stress test versus catheterization after renal function improves, consider GI workup. Discussed CAD risk factor modification. Thank you for this consultation. We will follow the patient. TID: [id number] RECEIPT: [id number] LARS/TRAVIS
[2022-02-20 05:46] LABS: Calcium 8.6 mg/dL (8.4-10.2)
[2022-02-20] MEDS ORDERED: INSULIN GLARGINE 100 UNITS/ML SUB-Q ONE (08:00)
[2022-02-20] MEDS: INSULIN LISPRO 100 UNIT/ML SUB-Q SCH ×4 (08:52→21:10)
[2022-02-20] MEDS: SODIUM BICARBONATE 650 MG TAB PO SCH ×3 (08:52→21:06)
[2022-02-20] MEDS ORDERED: NON-FORMULARY EACH (Rivaroxaban 15 MG Tablet) PO SCH (10:00)
[2022-02-20] MEDS: ONDANSETRON 4 MG/2 ML INJ IV PRN (10:02)
[2022-02-20] MEDS: oxyCODONE /ACETAMINOPHEN 5-325MG TAB PO PRN ×2 (10:02→21:08)
[2022-02-20] MEDS: PANTOPRAZOLE 40 MG TAB PO SCH (10:02)
--- NOTE | 2022-02-20 10:17 | Progress Note ---
Assessment and Plan 1. Acute kidney injury: NICHOL superimposed on CKD vs advanced CKD. Vasomotor NICHOL superimposed on CKD-4 in the setting of hypotension and volume depletion. Renal US negative. UA negative for blood. CKD in the setting of uncontrolled DM, HTN and Anabolic steroid use. Continue IV fluids. Monitor renal function. Creatinine level is slightly better. Avoid nephrotoxic agents. Meds dosage based on GFR. 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 2. FEN: Hyponatremia, improving, monitor. Anion-gap Metabolic acidosis, 2/2 NICHOL, Sod bicarb, monitor. Monitor lytes and volume status. 3. Chest pain / NSTEMI: Followed by Cards. Monitor. 4. DM, uncontrolled: A1C 9.9. On SSI. Monitor. 5. Hypertension: Monitor BP. 6. Polycythemia, POA: 2/2 volume depletion. Improving. Monitor. Subjective: Patient was seen and examined at the bedside. Fiance at the bedside. Examination: General appearance: well-developed, well-nourished, appears stated age, no distress HEENT: ATNC, pupils equal, no icterus Neck: trachea midline Respiratory: Clear to Auscultation Cardiology: regular, S1S2, no murmur Gastrointestinal: soft, normoactive bowel sounds, not tender, ND Integumentary: no rash Neurologic: AO, able to move extremities Ext: no edema noted Subjective Date of service: 02/20/22 Objective - Vital Signs Vital signs: Vital Signs - 12hr 02/20/22 02/20/22 02/20/22 00:17 05:56 07:00 Temperature 98.6 F 98.5 F Pulse Rate 79 Respiratory 18 18 Rate Blood Pressure 103/47 105/47 O2 Sat by Pulse 96 98 Oximetry 02/20/22 07:49 Temperature 98.6 F Pulse Rate 76 Respiratory Rate Blood Pressure 97/55 O2 Sat by Pulse 99 Oximetry - Lab 02/20/22 04:40 02/20/22 04:40 Most recent lab results Calcium 8.6 mg/dL (8.4-10.2) 02/20/22 04:40 Phosphorus 5.20 mg/dL (2.5-4.5) H 02/20/22 04:40 Urine Creatinine 292.6 mg/dL (0.1-20.0) H 02/19/22 15:20 Urine Sodium 48 mmol/L 02/19/22 15:20 Urine Total Protein 107 mg/dL (5-11.8) H 02/19/22 15:20 Medications & Allergies - Medications Allergies/Adverse Reactions: Allergies No Known Allergies Allergy (Verified 10/29/21 17:27) Home Medications: Home Medications Medication Instructions Recorded Confirmed Last Taken Type AtorvaSTATin [Lipitor] 40 mg PO QHS 02/19/22 02/19/22 Unknown History Pioglitazone [Actos] 15 mg PO BID 02/19/22 02/19/22 Unknown History Rivaroxaban [Xarelto] 15 mg PO QDAY 02/19/22 02/19/22 Unknown History Zolpidem [Ambien] 10 mg PO QHS PRN 02/19/22 02/19/22 Unknown History cloNIDine [Catapres] 0.1 mg PO QHS 02/19/22 02/19/22 Unknown History Active Medications: Generic Name Dose Route Start Last Admin Trade Name Freq PRN Reason Stop Dose Admin Acetaminophen 650 mg 02/18/22 20:25 Acetaminophen 325 Mg Tab PO Q4H PRN Pain MILD(1-3)/Fever >100.5/SAGLADO Albuterol 2.5 mg 02/18/22 20:25 Albuterol 2.5 Mg/3 Ml Nebu IH Q4HRT PRN Shortness Of Breath Atorvastatin Calcium 40 mg 02/19/22 22:00 02/19/22 21:01 Atorvastatin 40 Mg Tab PO 40 mg QHS DAR Administration Dextrose 50 ml 02/19/22 11:00 Dextrose 50% In Water (25gm) 50 Ml Syringe IV Q30MIN PRN Hypoglycemia Protocol Sodium Chloride 1,000 mls @ 100 mls/hr 02/19/22 11:45 02/19/22 15:35 Nacl 0.9% 1000 Ml IV 100 mls/hr DIRECT DAR Administration Insulin Human Lispro 0 unit 02/19/22 11:30 02/20/22 08:52 Insulin Lispro 100 Unit/Ml SUB-Q 6 unit ACHS DAR Administration Protocol Morphine Sulfate 2 mg 02/18/22 20:25 02/19/22 18:07 Morphine 4 Mg/1 Ml Inj IV 2 mg Q8H PRN Administration Pain , Severe (7-10) Ondansetron HCl 4 mg 02/18/22 20:25 02/20/22 10:02 Ondansetron 4 Mg/2 Ml Inj IV 4 mg Q8H PRN Administration Nausea And Vomiting Oxycodone/Acetaminophen 1 tab 02/18/22 20:25 02/20/22 10:02 Oxycodone /Acetaminophen 5-325mg Tab PO 1 tab Q6H PRN Administration Pain, Moderate (4-6) Pantoprazole Sodium 40 mg 02/20/22 10:00 02/20/22 10:02 Pantoprazole 40 Mg Tab PO 40 mg QDAC DAR Administration Polyethylene Glycol 17 gm 02/20/22 10:30 Polyethylene Glycol 3350 17 Gm Powder PO QDAY PRN Constipation Rivaroxaban 15 mg 02/20/22 18:00 Rivaroxaban 15 Mg Tab PO QPM DAR Sodium Bicarbonate 650 mg 02/19/22 14:00 02/20/22 08:52 Sodium Bicarbonate 650 Mg Tab PO 650 mg TID DAR Administration Sodium Chloride 10 ml 02/18/22 22:00 02/20/22 09:24 Sodium Chloride 0.9% 10 Ml Flush Syringe IV Not Given BID DAR Sodium Chloride 10 ml 02/18/22 20:25 Sodium Chloride 0.9% 10 Ml Flush Syringe IV PRN PRN LINE FLUSH
--- NOTE | 2022-02-20 10:20 | Electrocardiograph Report ---
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
[2022-02-20] MEDS ORDERED: POLYETHYLENE GLYCOL 3350 17 GM POWDER PO PRN (10:30)
[2022-02-20] MEDS: SODIUM CHLORIDE 0.9% 1000 ML 1,000 ML IV SCH ×2 (11:11→21:07)
--- NOTE | 2022-02-20 11:16 | Progress Note ---
Assessment and Plan Assessment and plan: #NICHOL (acute kidney injury) on CKD stage IV -patient reports baseline SCr of 3.0 -SCr improved from 5.2 to 4.7 s/p IVFs -Nephrology consulted, assistance appreciated -NETO showed medical renal disease -counseled to discontinue creatine use -likely secondary to vasomotor nephropathy -avoid nephrotoxins and renally dose medications #Angina at rest-improving #Atypical chest pain -per patient pain substernal/epigastric and worsened with eating -will discontinue pepcid and start PPI -TTE done, mild diastolic dysfunction LVEF 55-60% -Cardiology recommending stress test vs cath pending clinical improvement -Cardiology following, assistance appreciated #NSTEMI, type II -troponin 0.101-> 0.106 -> 0.088 -likely secondary to renal failure -EKG without acute changes -no intervention at this time #Chronic diastolic heart failure -TTE: mild diastolic dysfunction LVEF 55-60% -not in acute exacerbation #Hyponatremia-improving -IV fluid resuscitation therapy as clinically indicated #Metabolic acidosis -likely secondary to NICHOL on CKD #Hypertension #Hyponatremia -history of hypertension, patient with soft blood pressures while inpatient -will continue to monitor, no medications at this time #Type II Diabetes Mellitus with hyperglycemia -patient has taken oral medications and insulin in the past, currently taking nothing outpatient -Hgb A1C 9.9% -will start lantus 10U BID, high dose SSI -patient will require oral antihyperglycemics and insulin at discharge #History of DVT (deep vein thrombosis) -will continue xarelto #Advance care planning -Disease education conducted, care plan discussed, diagnoses discussed, prognosis discussed, patient is full code. Patient acknowledges understanding and agreement with care plan, +30 minutes. History Interval history: No acute events overnight. Patient concerned about his glucose levels. He currently has a freestyle external monitor on his L arm. Hospitalist Physical - Physical exam Narrative exam: GENERAL: Well-developed well-nourished. In no acute distress. HEENT: Normocephalic. Atraumatic. CHEST/LUNGS: CTAB on room air HEART/CARDIOVASCULAR: RRR. No murmur, rubs or gallops appreciated. ABDOMEN: +BS. NT/ND. SKIN: No rashes noted. NEURO: No focal motor deficit. Follows all commands. MUSCULOSKELETAL: No joint effusion EXTREMITIES: No cyanosis, clubbing or edema. PSYCH: Cooperative. - Constitutional Vitals: Temp Pulse Resp BP Pulse Ox 98.6 F 76 18 97/55 99 02/20/22 07:49 02/20/22 07:49 02/20/22 05:56 02/20/22 07:49 02/20/22 07:49 General appearance: Present: mild distress HEART Score - HEART Score EKG: Normal Age: 45-65 Risk factors: 1-2 risk factors Troponin: Troponin T 0.088 ng/mL (0.00-0.029) H 02/19/22 03:10 Troponin: 1-3x normal limit - Critical Actions Critical Actions: 4-6 pts:12-16.6% risk of adverse cardiac event. Should be admitted Results - Labs CBC & Chem 7: 02/20/22 04:40 02/20/22 04:40 Labs: Laboratory Last Values WBC 4.9 K/mm3 (4.5-11.0) 02/20/22 04:40 RBC 5.76 M/mm3 (3.65-5.03) H 02/20/22 04:40 Hgb 15.4 gm/dl (11.8-15.2) H 02/20/22 04:40 Hct 48.1 % (35.5-45.6) H 02/20/22 04:40 MCV 83 fl (84-94) L 02/20/22 04:40 MCH 27 pg (28-32) L 02/20/22 04:40 MCHC 32 % (32-34) 02/20/22 04:40 RDW 13.5 % (13.2-15.2) 02/20/22 04:40 Plt Count 185 K/mm3 (140-440) 02/20/22 04:40 Lymph % (Auto) 10.2 % (13.4-35.0) L 02/18/22 18:59 Frontier % (Auto) 8.9 % (0.0-7.3) H 02/18/22 18:59 Eos % (Auto) 0.5 % (0.0-4.3) 02/18/22 18:59 Baso % (Auto) 0.3 % (0.0-1.8) 02/18/22 18:59 Lymph # (Auto) 1.0 K/mm3 (1.2-5.4) L 02/18/22 18:59 Frontier # (Auto) 0.9 K/mm3 (0.0-0.8) H 02/18/22 18:59 Eos # (Auto) 0.1 K/mm3 (0.0-0.4) 02/18/22 18:59 Baso # (Auto) 0.0 K/mm3 (0.0-0.1) 02/18/22 18:59 Seg Neutrophils % 80.1 % (40.0-70.0) H 02/18/22 18:59 Seg Neutrophils # 7.7 K/mm3 (1.8-7.7) 02/18/22 18:59 Sodium 133 mmol/L (137-145) L 02/20/22 04:40 Potassium 4.5 mmol/L (3.6-5.0) 02/20/22 04:40 Chloride 101.0 mmol/L (98-107) 02/20/22 04:40 Carbon Dioxide 20 mmol/L (22-30) L 02/20/22 04:40 Anion Gap 17 mmol/L 02/20/22 04:40 BUN 71 mg/dL (9-20) H 02/20/22 04:40 Creatinine 4.7 mg/dL (0.8-1.3) H 02/20/22 04:40 Estimated GFR 16 ml/min 02/20/22 04:40 BUN/Creatinine Ratio 15 % 02/20/22 04:40 Glucose 368 mg/dL (75-100) H 02/20/22 04:40 POC Glucose 321 mg/dL (70-105) H 02/20/22 07:51 Hemoglobin A1c 9.9 % (4-6) H 02/18/22 18:59 Calcium 8.6 mg/dL (8.4-10.2) 02/20/22 04:40 Phosphorus 5.20 mg/dL (2.5-4.5) H 02/20/22 04:40 Total Bilirubin 2.30 mg/dL (0.1-1.2) H 02/18/22 18:59 AST 60 units/L (5-40) H 02/18/22 18:59 ALT 54 units/L (7-56) 02/18/22 18:59 Alkaline Phosphatase 76 units/L (35-129) 02/18/22 18:59 Troponin T 0.088 ng/mL (0.00-0.029) H 02/19/22 03:10 Total Protein 7.9 g/dL (6.3-8.2) 02/18/22 18:59 Albumin 4.6 g/dL (3.9-5) 02/18/22 18:59 Albumin/Globulin Ratio 1.4 % 02/18/22 18:59 Triglycerides 121 mg/dL (2-149) 02/18/22 18:59 Cholesterol 140 mg/dL (50-199) 02/18/22 18:59 LDL Cholesterol Direct 82 mg/dL (50-130) 02/18/22 18:59 HDL Cholesterol 38 mg/dL (40-59) L 02/18/22 18:59 Cholesterol/HDL Ratio 3.68 % 02/18/22 18:59 PTH Intact 92.74 pg/mL (15-65) H 02/19/22 10:01 Urine Color Yellow (Yellow) 02/19/22 15:20 Urine Turbidity Clear (Clear) 02/19/22 15:20 Urine pH 5.0 (5.0-7.0) 02/19/22 15:20 Ur Specific [place] 1.015 (1.003-1.030) 02/19/22 15:20 Urine Protein 100 mg/dl mg/dL (Negative) 02/19/22 15:20 Urine Glucose (UA) 50 mg/dL (Negative) 02/19/22 15:20 Urine Ketones Neg mg/dL (Negative) 02/19/22 15:20 Urine Blood Neg (Negative) 02/19/22 15:20 Urine Nitrite Neg (Negative) 02/19/22 15:20 Urine Bilirubin Neg (Negative) 02/19/22 15:20 Urine Urobilinogen 2.0 mg/dL (<2.0) 02/19/22 15:20 Ur Leukocyte Esterase Neg (Negative) 02/19/22 15:20 Urine WBC (Auto) 2.0 /HPF (0.0-6.0) 02/19/22 15:20 Urine RBC (Auto) < 1.0 /HPF (0.0-6.0) 02/19/22 15:20 U Epithel Cells (Auto) 3.0 /HPF (0-13.0) 02/19/22 15:20 Ur Renal Epithelial Cell <1 /LPF 02/19/22 15:20 Urine Mucus Few /HPF 02/19/22 15:20 Urine Creatinine 292.6 mg/dL (0.1-20.0) H 02/19/22 15:20 Protein/Creatinin Ratio 0.37 02/19/22 15:20 Urine Sodium 48 mmol/L 02/19/22 15:20 Urine Total Protein 107 mg/dL (5-11.8) H 02/19/22 15:20 Jasso/IV: Voiding Method Toilet Active Medications - Current Medications Current Medications: Generic Name Dose Route Start Last Admin Trade Name Freq PRN Reason Stop Dose Admin Acetaminophen 650 mg 02/18/22 20:25 Acetaminophen 325 Mg Tab PO Q4H PRN Pain MILD(1-3)/Fever >100.5/[place]O Albuterol 2.5 mg 02/18/22 20:25 Albuterol 2.5 Mg/3 Ml Nebu IH Q4HRT PRN Shortness Of Breath Atorvastatin Calcium 40 mg 02/19/22 22:00 02/19/22 21:01 Atorvastatin 40 Mg Tab PO 40 mg QHS DAR Administration Dextrose 50 ml 02/19/22 11:00 Dextrose 50% In Water (25gm) 50 Ml Syringe IV Q30MIN PRN Hypoglycemia Protocol Sodium Chloride 1,000 mls @ 100 mls/hr 02/19/22 11:45 02/20/22 11:11 Nacl 0.9% 1000 Ml IV 100 mls/hr DIRECT DAR Administration Insulin Human Lispro 0 unit 02/19/22 11:30 02/20/22 08:52 Insulin Lispro 100 Unit/Ml SUB-Q 6 unit ACHS DAR Administration Protocol Morphine Sulfate 2 mg 02/18/22 20:02/19/22 18:07 Morphine 4 Mg/1 Ml Inj IV 2 mg Q8H PRN Administration Pain , Severe (7-10) Ondansetron HCl 4 mg 02/18/22 20:02/20/22 10:02 Ondansetron 4 Mg/2 Ml Inj IV 4 mg Q8H PRN Administration Nausea And Vomiting Oxycodone/Acetaminophen 1 tab 02/18/22 20:25 02/20/22 10:02 Oxycodone /Acetaminophen 5-325mg Tab PO 1 tab Q6H PRN Administration Pain, Moderate (4-6) Pantoprazole Sodium 40 mg 02/20/22 10:00 02/20/22 10:02 Pantoprazole 40 Mg Tab PO 40 mg QDAC DAR Administration Polyethylene Glycol 17 gm 02/20/22 10:30 02/20/22 11:07 Polyethylene Glycol 3350 17 Gm Powder PO 17 gm QDAY PRN Administration Constipation Rivaroxaban 15 mg 02/20/22 18:00 Rivaroxaban 15 Mg Tab PO QPM DAR Sodium Bicarbonate 650 mg 02/19/22 14:00 02/20/22 08:52 Sodium Bicarbonate 650 Mg Tab PO 650 mg TID DAR Administration Sodium Chloride 10 ml 02/18/22 22:00 02/20/22 09:24 Sodium Chloride 0.9% 10 Ml Flush Syringe IV Not Given BID DAR Sodium Chloride 10 ml 02/18/22 20:25 Sodium Chloride 0.9% 10 Ml Flush Syringe IV PRN PRN LINE FLUSH
[2022-02-20] MEDS: RIVAROXABAN 15 MG TAB PO SCH ×2 (16:25→21:06)
--- NOTE | 2022-02-20 17:04 | Progress Note ---
Assessment and Plan - Patient Problems (1) Acute kidney injury superimposed on chronic kidney disease Current Visit: Yes Status: Acute (2) Diabetes Current Visit: Yes Status: Acute (3) NSTEMI (non-ST elevated myocardial infarction) Current Visit: Yes Status: Acute Subjective Date of service: 02/20/22 Interval history: NO C/O Objective Vital Signs Temp Pulse Resp BP Pulse Ox 02/20/22 11:58 98.0 F 77 103/70 96 02/20/22 07:49 98.6 F 76 97/55 99 02/20/22 07:00 98 02/20/22 05:56 98.5 F 18 105/47 02/20/22 00:17 98.6 F 79 18 103/47 96 02/19/22 22:00 79 98 02/19/22 20:19 98.0 F 79 19 93/50 98 02/19/22 19:22 98 - Physical Examination General: Other (OW) HEENT: Positive: PERRL Neck: Positive: neck supple Cardiac: Positive: Reg Rate and Rhythm Lungs: Positive: clear to auscultation Abdomen: Positive: Unremarkable Extremities: Present: normal - Labs and Meds CBC 02/20/22 Range/Units 04:40 WBC 4.9 (4.5-11.0) K/mm3 RBC 5.76 H (3.65-5.03) M/mm3 Hgb 15.4 H (11.8-15.2) gm/dl Hct 48.1 H (35.5-45.6) % Plt Count 185 (140-440) K/mm3 Comprehensive Metabolic Panel 02/20/22 Range/Units 04:40 Sodium 133 L (137-145) mmol/L Potassium 4.5 (3.6-5.0) mmol/L Chloride 101.0 (98-107) mmol/L Carbon Dioxide 20 L (22-30) mmol/L BUN 71 H (9-20) mg/dL Creatinine 4.7 H (0.8-1.3) mg/dL Glucose 368 H (75-100) mg/dL Calcium 8.6 (8.4-10.2) mg/dL
[2022-02-20] MEDS: INSULIN GLARGINE 100 UNITS/ML SUB-Q SCH (21:06)
[2022-02-21 05:47] LABS: Calcium 9.1 mg/dL (8.4-10.2)
[2022-02-21] MEDS: SODIUM CHLORIDE 0.9% 1000 ML 1,000 ML IV SCH (08:05)
--- NOTE | 2022-02-21 09:01 | Progress Note ---
Assessment and Plan 1. Acute kidney injury superimposed on CKD: Vasomotor NICHOL superimposed on CKD-4 in the setting of hypotension and volume depletion. Renal US negative. UA negative for blood. CKD in the setting of uncontrolled DM, HTN and Anabolic steroid use. LIAN, ANCA, GBM Ab, complements and SPE pending. Continue IV fluids. Monitor renal function. Creatinine level is improving. Avoid nephrotoxic agents. Meds dosage based on GFR. Monitor for [employer] needs. 2. FEN: Hyponatremia, improved, monitor. Anion-gap Metabolic acidosis, 2/2 NICHOL, Sod bicarb, monitor. Monitor lytes and volume status. 3. Chest pain / NSTEMI: Followed by Cards. Monitor. 4. DM, uncontrolled: A1C 9.9. On SSI. Monitor. 5. Hypertension: Monitor BP. 6. Polycythemia, POA: 2/2 volume depletion. Improving. Monitor. Subjective: Patient was seen and examined at the bedside. Examination: General appearance: well-developed, well-nourished, appears stated age, no distress HEENT: ATNC, pupils equal, no icterus Neck: trachea midline Respiratory: Clear to Auscultation Cardiology: regular, S1S2, no murmur Gastrointestinal: soft, normoactive bowel sounds, not tender, ND Integumentary: no rash Neurologic: AO, able to move extremities Ext: no edema noted Subjective Date of service: 02/21/22 Objective - Vital Signs Vital signs: Vital Signs - 12hr 02/20/22 02/20/22 02/21/22 21:26 22:00 07:00 Pulse Rate 76 O2 Sat by Pulse 97 98 Oximetry - Lab 02/20/22 04:40 02/21/22 04:40 Most recent lab results Calcium 9.1 mg/dL (8.4-10.2) 02/21/22 04:40 Phosphorus 5.20 mg/dL (2.5-4.5) H 02/20/22 04:40 Urine Creatinine 292.6 mg/dL (0.1-20.0) H 02/19/22 15:20 Urine Sodium 48 mmol/L 02/19/22 15:20 Urine Total Protein 107 mg/dL (5-11.8) H 02/19/22 15:20 Medications & Allergies - Medications Allergies/Adverse Reactions: Allergies No Known Allergies Allergy (Verified 10/29/21 17:27) Home Medications: Home Medications Medication Instructions Recorded Confirmed Last Taken Type AtorvaSTATin [Lipitor] 40 mg PO QHS 02/19/22 02/19/22 Unknown History Pioglitazone [Actos] 15 mg PO BID 02/19/22 02/19/22 Unknown History Rivaroxaban [Xarelto] 15 mg PO QDAY 02/19/22 02/19/22 Unknown History Zolpidem [Ambien] 10 mg PO QHS PRN 02/19/22 02/19/22 Unknown History cloNIDine [Catapres] 0.1 mg PO QHS 02/19/22 02/19/22 Unknown History Active Medications: Generic Name Dose Route Start Last Admin Trade Name Freq PRN Reason Stop Dose Admin Acetaminophen 650 mg 02/18/22 20:25 Acetaminophen 325 Mg Tab PO Q4H PRN Pain MILD(1-3)/Fever >100.5/[place] Albuterol 2.5 mg 02/18/22 20:25 Albuterol 2.5 Mg/3 Ml Nebu IH Q4HRT PRN Shortness Of Breath Atorvastatin Calcium 40 mg 02/19/22 22:00 02/20/22 21:06 Atorvastatin 40 Mg Tab PO 40 mg QHS DAR Administration Dextrose 50 ml 02/19/22 11:00 Dextrose 50% In Water (25gm) 50 Ml Syringe IV Q30MIN PRN Hypoglycemia Protocol Sodium Chloride 1,000 mls @ 100 mls/hr 02/19/22 11:45 02/21/22 08:05 Nacl 0.9% 1000 Ml IV 100 mls/hr DIRECT DAR Administration Insulin Glargine 10 units 02/20/22 22:00 02/20/22 21:06 Insulin Glargine 100 Units/Ml SUB-Q 10 units BID DAR Administration Insulin Human Lispro 0 unit 02/19/22 11:30 02/20/22 21:10 Insulin Lispro 100 Unit/Ml SUB-Q 4 unit ACHS DAR Administration Protocol Morphine Sulfate 2 mg 02/18/22 20:25 02/19/22 18:07 Morphine 4 Mg/1 Ml Inj IV 2 mg Q8H PRN Administration Pain , Severe (7-10) Ondansetron HCl 4 mg 02/18/22 20:25 02/20/22 10:02 Ondansetron 4 Mg/2 Ml Inj IV 4 mg Q8H PRN Administration Nausea And Vomiting Oxycodone/Acetaminophen 1 tab 02/18/22 20:25 02/20/22 21:08 Oxycodone /Acetaminophen 5-325mg Tab PO 1 tab Q6H PRN Administration Pain, Moderate (4-6) Pantoprazole Sodium 40 mg 02/20/22 10:00 02/20/22 10:02 Pantoprazole 40 Mg Tab PO 40 mg QDAC DAR Administration Polyethylene Glycol 17 gm 02/20/22 10:30 02/20/22 11:07 Polyethylene Glycol 3350 17 Gm Powder PO 17 gm QDAY PRN Administration Constipation Rivaroxaban 15 mg 02/20/22 18:00 02/20/22 21:06 Rivaroxaban 15 Mg Tab PO Not Given QPM DAR Sodium Bicarbonate 650 mg 02/19/22 14:00 02/20/22 21:06 Sodium Bicarbonate 650 Mg Tab PO 650 mg TID DAR Administration Sodium Chloride 10 ml 02/18/22 22:00 02/20/22 21:13 Sodium Chloride 0.9% 10 Ml Flush Syringe IV 10 ml BID DAR Administration Sodium Chloride 10 ml 02/18/22 20:25 Sodium Chloride 0.9% 10 Ml Flush Syringe IV PRN PRN LINE FLUSH
[2022-02-21] MEDS: INSULIN LISPRO 100 UNIT/ML SUB-Q SCH ×4 (09:28→21:21)
[2022-02-21] MEDS: INSULIN GLARGINE 100 UNITS/ML SUB-Q SCH ×2 (09:51→21:20)
[2022-02-21] MEDS: SODIUM BICARBONATE 650 MG TAB PO SCH ×3 (09:51→21:20)
[2022-02-21] MEDS: PANTOPRAZOLE 40 MG TAB PO SCH (09:51)
--- NOTE | 2022-02-21 10:00 | Progress Note ---
Assessment and Plan 1. Chest pain currently resolved 2. Equally vocal serum troponin level elevation nonspecific in the setting of underlying renal insufficiency. 3. Chronic renal insufficiency stage IV 5. Essential hypertension 6. Type 2 diabetes mellitus 7. History of deep venous thrombosis of the lower extremities on Xarelto Echocardiogram shows normal left ventricular size with normal global and regional function. Plan. Patient is currently stable and chest pain-free elective evaluation for ischemic coronary artery disease with stress MPI. This can be done as an in or outpatient. Subjective Date of service: 02/21/22 Interval history: No cardiac complains. Objective Vital Signs Temp Pulse Resp BP Pulse Ox 02/21/22 07:00 98 02/20/22 22:00 76 02/20/22 21:26 97 02/20/22 19:49 98.8 F 75 18 141/82 98 02/20/22 19:00 98 02/20/22 17:02 75 20 113/73 99 02/20/22 11:58 98.0 F 77 103/70 96 - Physical Examination General: Appears Well, No Apparent Distress, Other (mildly obese) HEENT: Positive: PERRL, Normocephaly, Sinus Tenderness Neck: Positive: neck supple, trachea midline. Negative: JVD/HJR Cardiac: Positive: Regular Rate, S1/S2, PMI, Laterally Displaced. Negative: S3, S4 Lungs: Positive: clear to auscultation, No Wheeze, Rales, Rhonchi Neuro: Positive: Grossly Intact Abdomen: Positive: Unremarkable Extremities: Present: normal. Absent: edema - Labs and Meds Comprehensive Metabolic Panel 02/21/22 Range/Units 04:40 Sodium 138 (137-145) mmol/L Potassium 3.8 (3.6-5.0) mmol/L Chloride 103.1 (98-107) mmol/L Carbon Dioxide 21 L (22-30) mmol/L BUN 52 H (9-20) mg/dL Creatinine 3.3 H (0.8-1.3) mg/dL Glucose 160 H (75-100) mg/dL Calcium 9.1 (8.4-10.2) mg/dL
[2022-02-21 12:32] LABS: Albumin 3.9 g/dL (3.9-5); Calcium 9.1 mg/dL (8.4-10.2)
--- NOTE | 2022-02-21 12:38 | Progress Note ---
Assessment and Plan Assessment and Plan Assessment and plan: #NICHOL (acute kidney injury) on CKD stage IV -patient reports baseline SCr of 3.0 -SCr improved from 5.2 to 4.7 to 2,5 to 2.2---s/p IVFs Improved from 5.2 to 2.2 IV fluids for one more day -Nephrology consulted and f/u appreciated -NETO showed medical renal disease -counseled to discontinue creatine use -likely secondary to vasomotor nephropathy -avoid nephrotoxins and renally dose medications #Angina at rest-improving #Atypical chest pain -per patient pain substernal/epigastric and worsened with eating -will discontinue pepcid and start PPI -TTE done, mild diastolic dysfunction LVEF 55-60% -Cardiology recommending stress test vs cath pending clinical improvement -Cardiology following, assistance appreciated #NSTEMI, type II -troponin 0.101-> 0.106 -> 0.088 -likely secondary to renal failure -EKG without acute changes -no intervention at this time #Chronic diastolic heart failure -TTE: mild diastolic dysfunction LVEF 55-60% -not in acute exacerbation #Hyponatremia-improved #Metabolic acidosis -likely secondary to NICHOL on CKD #Hypertension #Hyponatremia -history of hypertension, patient with soft blood pressures while inpatient -will continue to monitor, no medications at this time #Type II Diabetes Mellitus with hyperglycemia -patient has taken oral medications and insulin in the past, currently taking nothing outpatient -Hgb A1C 9.9% -started lantus 10U BID, high dose SSI previous couple of days Lantus increased -patient will require oral antihyperglycemics and insulin at discharge #History of DVT (deep vein thrombosis) -will continue xarelto #Advance care planning -Disease education conducted, care plan discussed, diagnoses discussed, prognosis discussed, patient is full code. Patient acknowledges understanding and agreement with care plan, +30 minutes. Subjective Date of service: 02/21/22 Principal diagnosis: NICHOL Interval history: History Interval history: No acute events overnight. Patient concerned about his glucose levels. He currently has a [employer] external monitor on his L arm. 02/21/2022 Creatinine is improved from 5.2-2.5 Objective - Constitutional Vitals: Vital Signs - 12hr 02/21/22 02/21/22 02/21/22 07:00 10:00 10:09 Pulse Rate 76 O2 Sat by Pulse 98 100 Oximetry General appearance: Present: no acute distress, well-nourished - EENT Eyes: PERRL, EOM intact ENT: hearing intact, clear oral mucosa Ears: bilateral: normal - Neck Neck: supple, normal ROM - Respiratory Respiratory effort: normal Respiratory: bilateral: CTA - Breasts Breasts: normal - Cardiovascular Heart rate: 78 Rhythm: regular Heart Sounds: Present: S1 & S2. Absent: gallop, rub Extremities: pulses intact, No edema, normal color, Full ROM - Gastrointestinal General gastrointestinal: Present: soft, non-tender, non-distended, normal bowel sounds - Genitourinary Male genitourinary: normal - Integumentary Integumentary: clear, warm, dry - Musculoskeletal Musculoskeletal: 1, strength equal bilaterally - Neurologic Neurologic: moves all extremities - Psychiatric Psychiatric: memory intact, appropriate mood/affect, intact judgment & insight - Labs CBC & Chem 7: 02/22/22 04:31 02/22/22 04:31 Labs: Abnormal lab results 02/20/22 02/20/22 02/20/22 Range/Units 12:57 17:04 20:28 Sodium (137-145) mmol/L Carbon Dioxide (22-30) mmol/L BUN (9-20) mg/dL Creatinine (0.8-1.3) mg/dL Glucose (75-100) mg/dL POC Glucose 322 H 263 H 231 H (70-105) mg/dL Total Bilirubin (0.1-1.2) mg/dL 02/21/22 02/21/22 02/21/22 Range/Units 04:40 08:55 10:57 Sodium (137-145) mmol/L Carbon Dioxide 21 L (22-30) mmol/L BUN 52 H (9-20) mg/dL Creatinine 3.3 H (0.8-1.3) mg/dL Glucose 160 H (75-100) mg/dL POC Glucose 132 H 246 H (70-105) mg/dL Total Bilirubin (0.1-1.2) mg/dL 02/21/22 Range/Units 11:31 Sodium 134 L (137-145) mmol/L Carbon Dioxide (22-30) mmol/L BUN 45 H (9-20) mg/dL Creatinine 2.5 H (0.8-1.3) mg/dL Glucose 253 H (75-100) mg/dL POC Glucose (70-105) mg/dL Total Bilirubin 1.30 H (0.1-1.2) mg/dL HEART Score - HEART Score EKG: Normal Age: 45-65 Risk factors: 1-2 risk factors Troponin: Troponin T 0.088 ng/mL (0.00-0.029) H 02/19/22 03:10 Troponin: 1-3x normal limit - Critical Actions Critical Actions: 4-6 pts:12-16.6% risk of adverse cardiac event. Should be admitted
[2022-02-21] MEDS ORDERED: amLODIPine 10 MG TAB PO SCH (15:00)
[2022-02-21] MEDS: PIOGLITAZONE 15 MG TAB PO SCH ×2 (15:38→21:20)
[2022-02-21] MEDS: RIVAROXABAN 15 MG TAB PO SCH (17:10)
[2022-02-21] MEDS ORDERED: ZOLPIDEM 5 MG TAB PO PRN (22:00)
[2022-02-21] MEDS: MORPHINE 4 MG/1 ML INJ IV PRN (22:22)
[2022-02-22] MEDS: SODIUM CHLORIDE 0.9% 1000 ML 1,000 ML IV SCH ×3 (04:28→23:34)
[2022-02-22 05:33] LABS: Basophils % (Auto) 0.4 % (0.0-1.8); Eosinophils # (Auto) 0.2 K/mm3 (0.0-0.4); Eosinophils % (Auto) 3.7 % (0.0-4.3); Hematocrit 47.4 % (35.5-45.6); Hemoglobin 15.6 gm/dl (11.8-15.2); Lymphocytes # (Auto) 1.5 K/mm3 (1.2-5.4); Lymphocytes % (Auto) 35.1 % (13.4-35.0); Mean Corpuscular HGB Conc 33 % (32-34); Mean Corpuscular Volume 83 fl (84-94); Monocytes # (Auto) 0.6 K/mm3 (0.0-0.8); Platelet Count 192 K/mm3 (140-440); Red Cell Distribution Width 13.3 % (13.2-15.2)
[2022-02-22 05:42] LABS: Calcium 9.1 mg/dL (8.4-10.2)
[2022-02-22] MEDS: INSULIN LISPRO 100 UNIT/ML SUB-Q SCH ×4 (09:11→23:25)
[2022-02-22] MEDS: INSULIN GLARGINE 100 UNITS/ML SUB-Q SCH ×2 (10:15→23:24)
[2022-02-22] MEDS: SODIUM BICARBONATE 650 MG TAB PO SCH ×3 (10:15→23:21)
[2022-02-22] MEDS: PIOGLITAZONE 15 MG TAB PO SCH ×2 (10:15→23:23)
[2022-02-22] MEDS: PANTOPRAZOLE 40 MG TAB PO SCH (10:15)
--- NOTE | 2022-02-22 10:19 | Progress Note ---
Assessment and Plan 1. Acute kidney injury superimposed on CKD: Vasomotor NICHOL superimposed on CKD-3 in the setting of hypotension and volume depletion. Renal US negative. UA negative for blood. CKD in the setting of uncontrolled DM, HTN and Anabolic steroid use. LIAN, ANCA, GBM Ab, complements and SPEP pending. Continue IV fluids. Monitor renal function. Creatinine level continue to improve. Avoid nephrotoxic agents. Meds dosage based on GFR. 2. FEN: Hyponatremia, improved, monitor. Anion-gap Metabolic acidosis, 2/2 NICHOL, improved, monitor. Monitor lytes and volume status. 3. Chest pain / NSTEMI: Followed by Cards. Monitor. 4. DM, uncontrolled: A1C 9.9. On SSI. Monitor. 5. Hypertension: Monitor BP. 6. Polycythemia, POA: 2/2 volume depletion. Improving. Monitor. F/u in 1-2 weeks. Subjective: Patient was seen and examined at the bedside. Doing ok. Examination: General appearance: well-developed, well-nourished, appears stated age, no distress HEENT: ATNC, pupils equal, no icterus Neck: trachea midline Respiratory: Clear to Auscultation Cardiology: regular, S1S2, no murmur Gastrointestinal: soft, normoactive bowel sounds, not tender, ND Integumentary: no rash Neurologic: AO, able to move extremities Ext: no edema noted Subjective Date of service: 02/22/22 Objective - Vital Signs Vital signs: Vital Signs - 12hr 02/21/22 02/21/22 22:52 23:56 Temperature 98.3 F Pulse Rate 71 Respiratory 20 18 Rate Blood Pressure 138/84 O2 Sat by Pulse 95 Oximetry - Lab 02/22/22 04:31 02/22/22 04:31 Most recent lab results Calcium 9.1 mg/dL (8.4-10.2) 02/22/22 04:31 Phosphorus 5.20 mg/dL (2.5-4.5) H 02/20/22 04:40 Urine Creatinine 292.6 mg/dL (0.1-20.0) H 02/19/22 15:20 Urine Sodium 48 mmol/L 02/19/22 15:20 Urine Total Protein 107 mg/dL (5-11.8) H 02/19/22 15:20 Medications & Allergies - Medications Allergies/Adverse Reactions: Allergies No Known Allergies Allergy (Verified 10/29/21 17:27) Home Medications: Home Medications Medication Instructions Recorded Confirmed Last Taken Type AtorvaSTATin [Lipitor] 40 mg PO QHS 02/19/22 02/19/22 Unknown History Pioglitazone [Actos] 15 mg PO BID 02/19/22 02/19/22 Unknown History Rivaroxaban [Xarelto] 15 mg PO QDAY 02/19/22 02/19/22 Unknown History Zolpidem [Ambien] 10 mg PO QHS PRN 02/19/22 02/19/22 Unknown History cloNIDine [Catapres] 0.1 mg PO QHS 02/19/22 02/19/22 Unknown History Active Medications: Generic Name Dose Route Start Last Admin Trade Name Freq PRN Reason Stop Dose Admin Acetaminophen 650 mg 02/18/22 20:25 Acetaminophen 325 Mg Tab PO Q4H PRN Pain MILD(1-3)/Fever >100.5/[place] Albuterol 2.5 mg 02/18/22 20:25 Albuterol 2.5 Mg/3 Ml Nebu IH Q4HRT PRN Shortness Of Breath Atorvastatin Calcium 40 mg 02/19/22 22:00 02/21/22 21:20 Atorvastatin 40 Mg Tab PO 40 mg QHS DAR Administration Dextrose 50 ml 02/19/22 11:00 Dextrose 50% In Water (25gm) 50 Ml Syringe IV Q30MIN PRN Hypoglycemia Protocol Sodium Chloride 1,000 mls @ 100 mls/hr 02/19/22 11:45 02/22/22 04:28 Nacl 0.9% 1000 Ml IV 100 mls/hr DIRECT DAR Administration Insulin Glargine 10 units 02/20/22 22:00 02/22/22 10:15 Insulin Glargine 100 Units/Ml SUB-Q 10 units BID DAR Administration Insulin Human Lispro 0 unit 02/19/22 11:30 02/22/22 09:11 Insulin Lispro 100 Unit/Ml SUB-Q Not Given ACHS DAR Protocol Morphine Sulfate 2 mg 02/18/22 20:25 02/21/22 22:22 Morphine 4 Mg/1 Ml Inj IV 2 mg Q8H PRN Administration Pain , Severe (7-10) Ondansetron HCl 4 mg 02/18/22 20:25 02/20/22 10:02 Ondansetron 4 Mg/2 Ml Inj IV 4 mg Q8H PRN Administration Nausea And Vomiting Oxycodone/Acetaminophen 1 tab 02/18/22 20:25 02/20/22 21:08 Oxycodone /Acetaminophen 5-325mg Tab PO 1 tab Q6H PRN Administration Pain, Moderate (4-6) Pantoprazole Sodium 40 mg 02/20/22 10:00 02/22/22 10:15 Pantoprazole 40 Mg Tab PO 40 mg QDAC DAR Administration Pioglitazone HCl 15 mg 02/21/22 15:00 02/22/22 10:15 Pioglitazone 15 Mg Tab PO 15 mg BID DAR Administration Polyethylene Glycol 17 gm 02/20/22 10:30 02/20/22 11:07 Polyethylene Glycol 3350 17 Gm Powder PO 17 gm QDAY PRN Administration Constipation Rivaroxaban 15 mg 02/20/22 18:00 02/21/22 17:10 Rivaroxaban 15 Mg Tab PO 15 mg QPM DAR Administration Sodium Bicarbonate 650 mg 02/19/22 14:00 02/22/22 10:15 Sodium Bicarbonate 650 Mg Tab PO 650 mg TID DAR Administration Sodium Chloride 10 ml 02/18/22 22:00 02/22/22 10:15 Sodium Chloride 0.9% 10 Ml Flush Syringe IV 10 ml BID DAR Administration Sodium Chloride 10 ml 02/18/22 20:25 Sodium Chloride 0.9% 10 Ml Flush Syringe IV PRN PRN LINE FLUSH Zolpidem Tartrate 10 mg 02/21/22 22:00 02/22/22 04:42 Zolpidem 5 Mg Tab PO 10 mg QHS PRN Administration Sleep
--- NOTE | 2022-02-22 10:49 | Progress Note ---
Assessment and Plan 1. Chest pain currently resolved 2. Equally vocal serum troponin level elevation nonspecific in the setting of underlying renal insufficiency. 3. Chronic renal insufficiency stage IV 5. Essential hypertension 6. Type 2 diabetes mellitus 7. History of deep venous thrombosis of the lower extremities on Xarelto Echocardiogram shows normal left ventricular size with normal global and regional function. Plan. Patient is currently stable and chest pain-free elective evaluation for ischemic coronary artery disease with stress MPI. Subjective Date of service: 02/22/22 Interval history: No cardiac complains. Objective Vital Signs Temp Pulse Resp Resp BP Pulse Ox 02/21/22 23:56 98.3 F 71 18 138/84 95 02/21/22 22:52 20 02/21/22 22:00 79 20 98 02/21/22 21:22 100 02/21/22 20:13 98.3 F 75 16 132/86 98 02/21/22 15:46 97.9 F 70 18 126/86 98 02/21/22 12:07 98.1 F 74 20 142/91 95 - Physical Examination General: Appears Well, No Apparent Distress, Other (mildly obese) HEENT: Positive: PERRL, Normocephaly, Sinus Tenderness Neck: Positive: neck supple, trachea midline. Negative: JVD/HJR Cardiac: Positive: Regular Rate, S1/S2, PMI, Laterally Displaced. Negative: S3, S4 Lungs: Positive: clear to auscultation, No Wheeze, Rales, Rhonchi Neuro: Positive: Grossly Intact Abdomen: Positive: Unremarkable, Soft Extremities: Present: normal. Absent: edema - Labs and Meds Cardiac Enzymes 02/21/22 Range/Units 11:31 AST 25 (5-40) units/L CBC 02/22/22 Range/Units 04:31 WBC 4.2 L (4.5-11.0) K/mm3 RBC 5.70 H (3.65-5.03) M/mm3 Hgb 15.6 H (11.8-15.2) gm/dl Hct 47.4 H (35.5-45.6) % Plt Count 192 (140-440) K/mm3 Lymph # (Auto) 1.5 (1.2-5.4) K/mm3 [place] # (Auto) 0.6 (0.0-0.8) K/mm3 Eos # (Auto) 0.2 (0.0-0.4) K/mm3 Baso # (Auto) 0.0 (0.0-0.1) K/mm3 Comprehensive Metabolic Panel 02/21/22 02/22/22 Range/Units 11:31 04:31 Sodium 134 L 137 (137-145) mmol/L Potassium 4.2 4.4 (3.6-5.0) mmol/L Chloride 101.2 103.2 (98-107) mmol/L Carbon Dioxide 22 24 (22-30) mmol/L BUN 45 H 36 H (9-20) mg/dL Creatinine 2.5 H 2.2 H (0.8-1.3) mg/dL Glucose 253 H 148 H (75-100) mg/dL Calcium 9.1 9.1 (8.4-10.2) mg/dL AST 25 (5-40) units/L ALT 40 (7-56) units/L Alkaline Phosphatase 69 (35-129) units/L Total Protein 7.9 (6.3-8.2) g/dL Albumin 3.9 (3.9-5) g/dL
--- NOTE | 2022-02-22 14:47 | Progress Note ---
Assessment and Plan Assessment and Plan Assessment and plan: #NICHOL (acute kidney injury) on CKD stage IV -patient reports baseline SCr of 3.0 -SCr improved from 5.2 to 4.7 to 2,5 to 2.2---s/p IVFs Improved from 5.2 to 2.2 IV fluids for one more day -Nephrology consulted and f/u appreciated -NETO showed medical renal disease -counseled to discontinue creatine use -likely secondary to vasomotor nephropathy -avoid nephrotoxins and renally dose medications #Angina at rest-improving #Atypical chest pain -per patient pain substernal/epigastric and worsened with eating -will discontinue pepcid and start PPI -TTE done, mild diastolic dysfunction LVEF 55-60% -Cardiology recommending stress test vs cath pending clinical improvement -Cardiology following, assistance appreciated #NSTEMI, type II -troponin 0.101-> 0.106 -> 0.088 -likely secondary to renal failure -EKG without acute changes -no intervention at this time #Chronic diastolic heart failure -TTE: mild diastolic dysfunction LVEF 55-60% -not in acute exacerbation #Hyponatremia-improved #Metabolic acidosis -likely secondary to NICHOL on CKD #Hypertension #Hyponatremia -history of hypertension, patient with soft blood pressures while inpatient -will continue to monitor, no medications at this time #Type II Diabetes Mellitus with hyperglycemia -patient has taken oral medications and insulin in the past, currently taking nothing outpatient -Hgb A1C 9.9% -started lantus 10U BID, high dose SSI previous couple of days Lantus increased -patient will require oral antihyperglycemics and insulin at discharge #History of DVT (deep vein thrombosis) -will continue xarelto #Advance care planning -Disease education conducted, care plan discussed, diagnoses discussed, prognosis discussed, patient is full code. Patient acknowledges understanding and agreement with care plan, +30 minutes. Subjective Date of service: 02/22/22 Principal diagnosis: NICHOL Interval history: History Interval history: No acute events overnight. Patient concerned about his glucose levels. He currently has a freestyle external monitor on his L arm. 02/21/2022 Creatinine is improved from 5.2-2.5 02/22/2022 Creatinine is improved from 5.2-2.2 Continue IV fluids Patient also has underlying chronic kidney disease Possible discharge tomorrow Objective - Constitutional Vitals: Vital Signs - 12hr 05/29/22 05/29/22 05/29/22 05:03 07:35 10:00 Temperature 97.8 F 98.0 F Pulse Rate 72 76 76 Respiratory 20 18 Rate Respiratory 20 Rate [Left Chest] Blood Pressure 138/87 104/56 O2 Sat by Pulse 99 99 98 Oximetry General appearance: Present: no acute distress, well-nourished - EENT Eyes: PERRL, EOM intact ENT: hearing intact, clear oral mucosa Ears: bilateral: normal - Neck Neck: supple, normal ROM - Respiratory Respiratory effort: normal Respiratory: bilateral: CTA - Breasts Breasts: normal - Cardiovascular Heart rate: 78 Rhythm: regular Heart Sounds: Present: S1 & S2. Absent: gallop, rub Extremities: pulses intact, No edema, normal color, Full ROM - Gastrointestinal General gastrointestinal: Present: soft, non-tender, non-distended, normal bowel sounds - Genitourinary Male genitourinary: normal - Integumentary Integumentary: clear, warm, dry - Musculoskeletal Musculoskeletal: 1, strength equal bilaterally - Neurologic Neurologic: moves all extremities - Psychiatric Psychiatric: memory intact, appropriate mood/affect, intact judgment & insight - Allied health notes Allied health notes reviewed: nursing, case management - Labs CBC & Chem 7: 02/22/22 04:31 02/22/22 04:31 Labs: Abnormal lab results 02/21/22 02/21/22 02/22/22 Range/Units 15:43 20:53 04:31 WBC (4.5-11.0) K/mm3 RBC (3.65-5.03) M/mm3 Hgb (11.8-15.2) gm/dl Hct (35.5-45.6) % MCV (84-94) fl MCH (28-32) pg Lymph % (Auto) (13.4-35.0) % [place] % (Auto) (0.0-7.3) % BUN 36 H (9-20) mg/dL Creatinine 2.2 H (0.8-1.3) mg/dL Glucose 148 H (75-100) mg/dL POC Glucose 184 H 188 H (70-105) mg/dL 02/22/22 02/22/22 02/22/22 Range/Units 04:31 07:32 10:46 WBC 4.2 L (4.5-11.0) K/mm3 RBC 5.70 H (3.65-5.03) M/mm3 Hgb 15.6 H (11.8-15.2) gm/dl Hct 47.4 H (35.5-45.6) % MCV 83 L (84-94) fl MCH 27 L (28-32) pg Lymph % (Auto) 35.1 H (13.4-35.0) % [place] % (Auto) 14.0 H (0.0-7.3) % BUN (9-20) mg/dL Creatinine (0.8-1.3) mg/dL Glucose (75-100) mg/dL POC Glucose 117 H 194 H (70-105) mg/dL HEART Score - HEART Score EKG: Normal Age: 45-65 Risk factors: 1-2 risk factors Troponin: Troponin T 0.088 ng/mL (0.00-0.029) H 02/19/22 03:10 Troponin: 1-3x normal limit - Critical Actions Critical Actions: 4-6 pts:12-16.6% risk of adverse cardiac event. Should be admitted
[2022-02-22] MEDS: RIVAROXABAN 15 MG TAB PO SCH (17:23)
[2022-02-22] MEDS: oxyCODONE /ACETAMINOPHEN 5-325MG TAB PO PRN (23:23)
[2022-02-23 06:05] LABS: Basophils % (Auto) 0.5 % (0.0-1.8); Eosinophils # (Auto) 0.2 K/mm3 (0.0-0.4); Eosinophils % (Auto) 5.4 % (0.0-4.3); Hematocrit 47.6 % (35.5-45.6); Hemoglobin 15.5 gm/dl (11.8-15.2); Lymphocytes # (Auto) 1.5 K/mm3 (1.2-5.4); Lymphocytes % (Auto) 37.4 % (13.4-35.0); Mean Corpuscular HGB Conc 33 % (32-34); Mean Corpuscular Volume 84 fl (84-94); Monocytes # (Auto) 0.5 K/mm3 (0.0-0.8); Monocytes % (Auto) 12.8 % (0.0-7.3); Platelet Count 174 K/mm3 (140-440); Red Blood Count 5.71 M/mm3 (3.65-5.03); Red Cell Distribution Width 13.3 % (13.2-15.2)
[2022-02-23 06:19] LABS: Calcium 9.3 mg/dL (8.4-10.2)
[2022-02-23] MEDS ORDERED: REGADENOSON 0.4 MG/5 ML INJ IV ONE (09:00)
[2022-02-23] MEDS: INSULIN LISPRO 100 UNIT/ML SUB-Q SCH ×2 (09:08→11:33)
[2022-02-23 10:34] LABS: Myeloperoxidase Antibody <1.0 AI (<1.0)
--- NOTE | 2022-02-23 11:26 | Nuclear Medicine Report ---
APPROVED REPORT Exam: Nuclear Stress Test Indication: Chest pain [facility] Room #: [id number] Ht: 6 ft 0 in Wt: 218 lbs BSA: 2.21 m2 HR: 64 bpmBP: 140/93 mmHgBMI: 29.56 Rhythm: NSR Stress Test Details Stress Test: Exercise stress testing was performed using a protocol. HR Resting HR: 66 bpm Max HR Achieved: 157 bpm Max Heart Rate (APMHR): 171 bpm Target HR (85% APMHR): 145 bpm % of APMHR: 91 Recovery HR: 88 bpm HR response to stress: Normal HR response to stress BP Resting BP: 140/93 mmHg Max BP: 198/100 mmHg Recovery BP: 161/89 mmHg BP response to stress: Abnormal hypertensive response to stress. ECG Resting ECG: Sinus Rhythm Stress ECG: Sinus Tachycardia ST Change: None Arrhythmia: None Recovery ECG: Sinus Rhythm Recovery Arrhythmia: None Clinical Reason for Termination: Fatigue Stress Symptoms: None Exercise duration: 10 min 05 sec Exercise capacity: 10.9 METs Overall Exercise Capacity for Age: Good NM EXAM: Myocardial Perfusion REST/STRESS Resting Data Rest SPECT myocardial perfusion imaging was performed in supine position 45 minutes following the intravenous injection of 10 mCi of Tc-99m Myoview. Time of rest injection: 709 Date: 02/23/2022 Exercise Stress At peak stress, the patient was injected intravenously with 28mCi of Tc-99m Myoview. Time of stress injection: 934 Date: 02/23/2022 Gated Stress SPECT was performed 30 minutes after stress injection. The images were gated to evaluate regional wall motion and calculate left ventricular ejection fraction. Study Data TID = 0.88. Perfusion Wall Motion Normal wall motion. Stress LVEF 52% Nuclear Conclusion ECG Findings: negative for ischemia Clinical Findings: negative for ischemia Nuclear Findings: negative for ischemia Exercise Capacity: normal Left Ventricular Function: normal Risk Study: low Normal study. No scintigraphic evidence for myocardial ischemia or scar. No prior study available for comparison.
[2022-02-23] MEDS: PANTOPRAZOLE 40 MG TAB PO SCH (11:33)
[2022-02-23] MEDS: SODIUM BICARBONATE 650 MG TAB PO SCH (11:33)
[2022-02-23] MEDS: INSULIN GLARGINE 100 UNITS/ML SUB-Q SCH (11:34)
[2022-02-23] MEDS: PIOGLITAZONE 15 MG TAB PO SCH (11:34)
--- NOTE | 2022-02-23 11:37 | Progress Note ---
Assessment and Plan 1. Chest pain currently resolved 2. Equally vocal serum troponin level elevation nonspecific in the setting of underlying renal insufficiency. 3. Chronic renal insufficiency stage IV 5. Essential hypertension 6. Type 2 diabetes mellitus 7. History of deep venous thrombosis of the lower extremities on Xarelto Echocardiogram shows normal left ventricular size with normal global and regional function. Stress thallium scan showed normal exercise performance on the treadmill with normal myocardial perfusion scan images Plan. Patient is currently stable discharge planning as per hospitalist. Subjective Date of service: 02/23/22 Principal diagnosis: NICHOL Interval history: No cardiac complains. Objective Vital Signs Temp Pulse Resp Resp BP Pulse Ox 02/23/22 10:00 65 179/89 02/23/22 09:58 168/97 02/23/22 09:56 169/103 02/23/22 09:54 175/93 02/23/22 09:52 198/89 02/23/22 09:10 140/93 02/23/22 07:55 98.1 F 70 18 145/84 99 02/23/22 04:36 98.2 F 65 20 114/55 96 02/23/22 00:58 98.7 F 76 18 149/87 98 02/22/22 23:03 98 02/22/22 22:00 87 20 98 02/22/22 19:56 98.5 F 80 18 147/93 99 02/22/22 15:29 98.5 F 18 131/80 - Physical Examination General: Appears Well, No Apparent Distress, Other (mildly obese) HEENT: Positive: PERRL, Normocephaly, Sinus Tenderness Neck: Positive: neck supple, trachea midline. Negative: JVD/HJR Cardiac: Positive: Regular Rate, S1/S2, PMI, Laterally Displaced. Negative: S3, S4 Lungs: Positive: clear to auscultation, No Wheeze, Rales, Rhonchi Neuro: Positive: Grossly Intact Abdomen: Positive: Unremarkable, Soft Extremities: Present: normal. Absent: edema - Labs and Meds CBC 02/23/22 Range/Units 04:44 WBC 4.0 L (4.5-11.0) K/mm3 RBC 5.71 H (3.65-5.03) M/mm3 Hgb 15.5 H (11.8-15.2) gm/dl Hct 47.6 H (35.5-45.6) % Plt Count 174 (140-440) K/mm3 Lymph # (Auto) 1.5 (1.2-5.4) K/mm3 [place] # (Auto) 0.5 (0.0-0.8) K/mm3 Eos # (Auto) 0.2 (0.0-0.4) K/mm3 Baso # (Auto) 0.0 (0.0-0.1) K/mm3 Comprehensive Metabolic Panel 02/23/22 Range/Units 04:44 Sodium 139 (137-145) mmol/L Potassium 4.5 (3.6-5.0) mmol/L Chloride 103.4 (98-107) mmol/L Carbon Dioxide 25 (22-30) mmol/L BUN 26 H (9-20) mg/dL Creatinine 2.4 H (0.8-1.3) mg/dL Glucose 134 H (75-100) mg/dL Calcium 9.3 (8.4-10.2) mg/dL
[2022-02-23 12:43] VITALS: BP 148/84
--- NOTE | 2022-02-23 13:01 | Discharge Summary ---
Providers - Providers Date of Admission: 02/18/22 20:25 Date of discharge: 02/23/22 Attending physician: PETER LYNCH MD 02/18/22 Consult to Cardiac Rehabilitation [CONS] Routine Reason For Exam: Phase 1 02/18/22 20:56 Consult to Physician [CONS] Routine Comment: Consulting Provider: FLOWER RICKETTS Physician Instructions: Reason For Exam: shola 02/18/22 22:09 Consult to Cardiology [CONS] Routine Consulting Provider: MUKUND SHELLEY Reason For Exam: NSTEMI Primary care physician: COTTON WEIGHER Hospitalization Condition: Stable Disposition: 30 STILL A PATIENT Exam - Constitutional Vitals: Temp Pulse Resp BP Pulse Ox 98.2 F 81 20 148/84 98 02/23/22 11:28 02/23/22 11:28 02/23/22 11:48 02/23/22 11:28 02/23/22 11:48 Plan Care Plan Goals: Please follow-up with your primary care provider 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 Please stop taking creatine and make sure to stay hydrated to prevent you with kidney failure from worsening. Follow up with: PRIMARY CAREMD [Primary Care Provider] - 7 Days Prescriptions: AtorvaSTATin [Lipitor] 40 mg PO QHS 30 Days #30 tab Pioglitazone [Actos] 15 mg PO BID 30 Days #60 tab Pantoprazole [Protonix TAB] 40 mg PO QDAC 30 Days #30 tablet Sodium Bicarbonate 650 mg PO TID 30 Days #90 tablet
--- NOTE | 2022-02-23 13:09 | Progress Note ---
Assessment and Plan 1. Acute kidney injury superimposed on CKD: Vasomotor NICHOL superimposed on CKD-3 in the setting of hypotension and volume depletion. Renal US negative. UA negative for blood. CKD in the setting of uncontrolled DM, HTN and Anabolic steroid use. LIAN, ANCA, GBM Ab, complements and SPEP pending. Continue IV fluids. Monitor renal function. Creatinine level is better. Avoid nephrotoxic agents. Meds dosage based on GFR. 2. FEN: Hyponatremia, improved, monitor. Anion-gap Metabolic acidosis, 2/2 NICHOL, improved, monitor. Monitor lytes and volume status. 3. Chest pain / NSTEMI: Followed by Cards. Monitor. 4. DM, uncontrolled: A1C 9.9. On SSI. Monitor. 5. Hypertension: Monitor BP. 6. Polycythemia, POA: 2/2 volume depletion. Improving. Monitor. F/u in 1-2 weeks. Subjective: Patient was seen and examined at the bedside. Doing ok. Examination: General appearance: well-developed, well-nourished, appears stated age, no distress HEENT: ATNC, pupils equal, no icterus Neck: trachea midline Respiratory: Clear to Auscultation Cardiology: regular, S1S2, no murmur Gastrointestinal: soft, normoactive bowel sounds, not tender, ND Integumentary: no rash Neurologic: AO, able to move extremities Ext: no edema noted Subjective Date of service: 02/23/22 Principal diagnosis: NICHOL Objective - Vital Signs Vital signs: Vital Signs - 12hr 02/23/22 02/23/22 02/23/22 04:36 07:55 09:10 Temperature 98.2 F 98.1 F Pulse Rate 65 70 Respiratory 20 18 Rate Respiratory Rate [Left Chest] Blood Pressure 114/55 145/84 140/93 O2 Sat by Pulse 96 99 Oximetry 02/23/22 02/23/22 02/23/22 09:52 09:54 09:56 Temperature Pulse Rate Respiratory Rate Respiratory Rate [Left Chest] Blood Pressure 198/89 175/93 169/103 O2 Sat by Pulse Oximetry 02/23/22 02/23/22 02/23/22 09:58 10:00 11:28 Temperature 98.2 F Pulse Rate 65 81 Respiratory 18 Rate Respiratory Rate [Left Chest] Blood Pressure 168/97 179/89 148/84 O2 Sat by Pulse 94 Oximetry 02/23/22 11:48 Temperature Pulse Rate Respiratory Rate Respiratory 20 Rate [Left Chest] Blood Pressure O2 Sat by Pulse 98 Oximetry - Lab 02/23/22 04:44 02/23/22 04:44 Most recent lab results Calcium 9.3 mg/dL (8.4-10.2) 02/23/22 04:44 Phosphorus 5.20 mg/dL (2.5-4.5) H 02/20/22 04:40 Urine Creatinine 292.6 mg/dL (0.1-20.0) H 02/19/22 15:20 Urine Sodium 48 mmol/L 02/19/22 15:20 Urine Total Protein 107 mg/dL (5-11.8) H 02/19/22 15:20 Medications & Allergies - Medications Allergies/Adverse Reactions: Allergies No Known Allergies Allergy (Verified 10/29/21 17:27) Home Medications: Home Medications Medication Instructions Recorded Confirmed Last Taken Type Rivaroxaban [Xarelto] 15 mg PO QDAY 02/19/22 02/19/22 Unknown History Zolpidem [Ambien] 10 mg PO QHS PRN 02/19/22 02/19/22 Unknown History cloNIDine [Catapres] 0.1 mg PO QHS 02/19/22 02/19/22 Unknown History AtorvaSTATin [Lipitor] 40 mg PO QHS 30 Days #30 tab 02/23/22 Unknown Rx Pantoprazole [Protonix TAB] 40 mg PO QDAC 30 Days #30 tablet 02/23/22 Unknown Rx Pioglitazone [Actos] 15 mg PO BID 30 Days #60 tab 02/23/22 Unknown Rx Sodium Bicarbonate 650 mg PO TID 30 Days #90 tablet 02/23/22 Unknown Rx Active Medications: Generic Name Dose Route Start Last Admin Trade Name Freq PRN Reason Stop Dose Admin Acetaminophen 650 mg 02/18/22 20:25 Acetaminophen 325 Mg Tab PO Q4H PRN Pain MILD(1-3)/Fever >100.5/[place] Albuterol 2.5 mg 02/18/22 20:25 Albuterol 2.5 Mg/3 Ml Nebu IH Q4HRT PRN Shortness Of Breath Atorvastatin Calcium 40 mg 02/19/22 22:00 02/22/22 23:22 Atorvastatin 40 Mg Tab PO 40 mg QHS DAR Administration Dextrose 50 ml 02/19/22 11:00 Dextrose 50% In Water (25gm) 50 Ml Syringe IV Q30MIN PRN Hypoglycemia Protocol Sodium Chloride 1,000 mls @ 100 mls/hr 02/19/22 11:45 02/22/22 23:34 Nacl 0.9% 1000 Ml IV 100 mls/hr DIRECT DAR Administration Insulin Glargine 10 units 02/20/22 22:00 02/23/22 11:34 Insulin Glargine 100 Units/Ml SUB-Q 10 units BID DAR Administration Insulin Human Lispro 0 unit 02/19/22 11:30 02/23/22 11:33 Insulin Lispro 100 Unit/Ml SUB-Q 8 unit ACHS DAR Administration Protocol Morphine Sulfate 2 mg 02/18/22 20:02/21/22 22:22 Morphine 4 Mg/1 Ml Inj IV 2 mg Q8H PRN Administration Pain , Severe (7-10) Ondansetron HCl 4 mg 02/18/22 20:25 02/20/22 10:02 Ondansetron 4 Mg/2 Ml Inj IV 4 mg Q8H PRN Administration Nausea And Vomiting Oxycodone/Acetaminophen 1 tab 02/18/22 20:25 02/22/22 23:23 Oxycodone /Acetaminophen 5-325mg Tab PO 1 tab Q6H PRN Administration Pain, Moderate (4-6) Pantoprazole Sodium 40 mg 02/20/22 10:00 02/23/22 11:33 Pantoprazole 40 Mg Tab PO 40 mg QDAC DAR Administration Pioglitazone HCl 15 mg 02/21/22 15:00 02/23/22 11:34 Pioglitazone 15 Mg Tab PO 15 mg BID DAR Administration Polyethylene Glycol 17 gm 02/20/22 10:30 02/20/22 11:07 Polyethylene Glycol 3350 17 Gm Powder PO 17 gm QDAY PRN Administration Constipation Rivaroxaban 15 mg 02/20/22 18:00 02/22/22 17:23 Rivaroxaban 15 Mg Tab PO 15 mg QPM DAR Administration Sodium Bicarbonate 650 mg 02/19/22 14:00 02/23/22 11:33 Sodium Bicarbonate 650 Mg Tab PO 650 mg TID DAR Administration Sodium Chloride 10 ml 02/18/22 22:00 02/23/22 11:34 Sodium Chloride 0.9% 10 Ml Flush Syringe IV 10 ml BID DAR Administration Sodium Chloride 10 ml 02/18/22 20:25 Sodium Chloride 0.9% 10 Ml Flush Syringe IV PRN PRN LINE FLUSH Zolpidem Tartrate 10 mg 02/21/22 22:00 02/22/22 04:42 Zolpidem 5 Mg Tab PO 10 mg QHS PRN Administration Sleep
[2022-02-25 00:14] LABS: Albumin 3.5 g/dL (3.8-4.8); Gamma Globulin 1.3 g/dL (0.8-1.7)
[2022-02-26 17:17] LABS: ANA Screen, IFA Positive (Negative)
== END 2022-02-23 14:11 | disposition home or self-care (01) | DRG 682 ==
LOC: ED 18:25 → 4A 20:25
PROVIDERS: ADMIT Internal Medicine; ATTEND Student in an Organized Health Care Education/Training Program
DX: N17.9 Acute kidney failure, unspecified (principal); I21.A1 Myocardial infarction type 2; I13.0 Hypertensive heart and chronic kidney disease with heart failure and stage 1 through stage 4 chronic kidney disease, or unspecified chronic kidney disease; E87.1 Hypo-osmolality and hyponatremia; I50.32 Chronic diastolic (congestive) heart failure; N18.4 Chronic kidney disease, stage 4 (severe); I20.8 Other forms of angina pectoris; E78.5 Hyperlipidemia, unspecified; N18.9 Chronic kidney disease, unspecified; E11.65 Type 2 diabetes mellitus with hyperglycemia; E11.22 Type 2 diabetes mellitus with diabetic chronic kidney disease; Z83.3 Family history of diabetes mellitus; Z82.49 Family history of ischemic heart disease and other diseases of the circulatory system
CPT/HCPCS: 36415; 71046; 76770; 78452; 80048; 80053; 80061; 81001; 82570; 82962; 83036; 83520; 83970; 84100; 84156; 84165; 84300; 84484; 85025; 85027; 86021; 86038; 86160; 93005; 93017; 93306; G0378; Q9967; A9502; C8929; J1644; J1815; J2270; J2405; J7030

== ENCOUNTER 2022-04-02 07:47 | Emergency (ER) | payer BC ==
--- NOTE | 2022-04-02 13:47 | Emergency Department Report ---
ED ENT HPI - General Chief complaint: Sore Throat Stated complaint: RT SHOULDER PAIN/THROAT PAIN Time Seen by Provider: 04/02/22 13:09 Source: patient Mode of arrival: Ambulatory Limitations: No Limitations - History of Present Illness Initial comments: Patient is a 51-year-old male presenting to ED with complaint of sore throat and neck pain beginning a few days ago. States he visited his granddaughter over the holiday and states that she had URI symptoms. Denies fever or chills. Also complains of pain in right shoulder. Denies any recent injury. - Related Data Home Medications Medication Instructions Recorded Confirmed Last Taken Rivaroxaban [Xarelto] 15 mg PO QDAY 02/19/22 02/19/22 Unknown Zolpidem [Ambien] 10 mg PO QHS PRN 02/19/22 02/19/22 Unknown cloNIDine [Catapres] 0.1 mg PO QHS 02/19/22 02/19/22 Unknown Previous Rx's Medication Instructions Recorded Last Taken Type Naproxen [EC-Naprosyn] 500 mg PO BID #20 12/11/21 Unknown Rx methOCARBAMOL [Robaxin TAB] 500 mg PO Q6H PRN #2 12/11/21 Unknown Rx methylPREDNISolone [Medrol 4MG 4 mg PO ONCE #1 12/11/21 Unknown Rx DOSEPAK (21 tabs)] AtorvaSTATin [Lipitor] 40 mg PO QHS 30 Days #30 tab 02/23/22 Unknown Rx Pantoprazole [Protonix TAB] 40 mg PO QDAC 30 Days #30 tablet 02/23/22 Unknown Rx Pioglitazone [Actos] 15 mg PO BID 30 Days #60 tab 02/23/22 Unknown Rx Sodium Bicarbonate 650 mg PO TID 30 Days #90 tablet 02/23/22 Unknown Rx Allergies Allergy/AdvReac Type Severity Reaction Status Date / Time No Known Allergies Allergy Verified 03/05/22 15:27 ED Dental HPI - General Chief complaint: Sore Throat Stated complaint: RT SHOULDER PAIN/THROAT PAIN Time Seen by Provider: 04/02/22 13:09 Source: patient Mode of arrival: Ambulatory Limitations: No Limitations - Related Data Home Medications Medication Instructions Recorded Confirmed Last Taken Rivaroxaban [Xarelto] 15 mg PO QDAY 02/19/22 02/19/22 Unknown Zolpidem [Ambien] 10 mg PO QHS PRN 02/19/22 02/19/22 Unknown cloNIDine [Catapres] 0.1 mg PO QHS 02/19/22 02/19/22 Unknown Previous Rx's Medication Instructions Recorded Last Taken Type Naproxen [EC-Naprosyn] 500 mg PO BID #20 12/11/21 Unknown Rx methOCARBAMOL [Robaxin TAB] 500 mg PO Q6H PRN #2 12/11/21 Unknown Rx methylPREDNISolone [Medrol 4MG 4 mg PO ONCE #1 12/11/21 Unknown Rx DOSEPAK (21 tabs)] AtorvaSTATin [Lipitor] 40 mg PO QHS 30 Days #30 tab 02/23/22 Unknown Rx Pantoprazole [Protonix TAB] 40 mg PO QDAC 30 Days #30 tablet 02/23/22 Unknown Rx Pioglitazone [Actos] 15 mg PO BID 30 Days #60 tab 02/23/22 Unknown Rx Sodium Bicarbonate 650 mg PO TID 30 Days #90 tablet 02/23/22 Unknown Rx Allergies Allergy/AdvReac Type Severity Reaction Status Date / Time No Known Allergies Allergy Verified 03/05/22 15:27 ED Review of Systems ROS: Stated complaint: RT SHOULDER PAIN/THROAT PAIN Other details as noted in HPI Comment: All other systems reviewed and negative Constitutional: denies: chills, fever ENT: throat pain. denies: congestion Respiratory: denies: cough, shortness of breath, wheezing Cardiovascular: denies: chest pain, palpitations Gastrointestinal: denies: abdominal pain, nausea, diarrhea Musculoskeletal: arthralgia Skin: denies: rash, lesions Neurological: denies: headache, weakness, paresthesias Psychiatric: denies: anxiety, depression ED Past Medical Hx - Past Medical History Previous Medical History?: Yes Hx Hypertension: Yes Hx Congestive Heart Failure: Yes Hx Diabetes: Yes - Social History Smoking Status: Never Smoker - Medications Home Medications: Home Medications Medication Instructions Recorded Confirmed Last Taken Type Naproxen [EC-Naprosyn] 500 mg PO BID #20 12/11/21 Unknown Rx methOCARBAMOL [Robaxin TAB] 500 mg PO Q6H PRN #2 12/11/21 Unknown Rx methylPREDNISolone [Medrol 4MG 4 mg PO ONCE #1 12/11/21 Unknown Rx DOSEPAK (21 tabs)] Rivaroxaban [Xarelto] 15 mg PO QDAY 02/19/22 02/19/22 Unknown History Zolpidem [Ambien] 10 mg PO QHS PRN 02/19/22 02/19/22 Unknown History cloNIDine [Catapres] 0.1 mg PO QHS 02/19/22 02/19/22 Unknown History AtorvaSTATin [Lipitor] 40 mg PO QHS 30 Days #30 tab 02/23/22 Unknown Rx Pantoprazole [Protonix TAB] 40 mg PO QDAC 30 Days #30 tablet 02/23/22 Unknown Rx Pioglitazone [Actos] 15 mg PO BID 30 Days #60 tab 02/23/22 Unknown Rx Sodium Bicarbonate 650 mg PO TID 30 Days #90 tablet 02/23/22 Unknown Rx ED Physical Exam - General Limitations: No Limitations General appearance: alert, in no apparent distress - Head Head exam: Present: atraumatic, normocephalic - ENT ENT exam: Present: other (Pharyngeal erythema present) - Neck Neck exam: Present: lymphadenopathy - Respiratory Respiratory exam: Present: normal lung sounds bilaterally. Absent: respiratory distress - Cardiovascular Cardiovascular Exam: Present: regular rate, normal rhythm, normal heart sounds - GI/Abdominal GI/Abdominal exam: Present: soft. Absent: distended, tenderness - Rectal Rectal exam: Present: deferred - Extremities Exam Extremities exam: Present: normal inspection, full ROM. Absent: tenderness - Neurological Exam Neurological exam: Present: alert, oriented X3 - Psychiatric Psychiatric exam: Present: normal affect, normal mood - Skin Skin exam: Present: warm, dry, intact, normal color ED Course Vital Signs 04/02/22 15:43 Temperature 98.9 F Pulse Rate 90 Respiratory 18 Rate Blood Pressure 143/92 [Right] O2 Sat by Pulse 99 Oximetry ED Medical Decision Making - Medical Decision Making Patient presenting with complaint of sore throat. Examination reveals pharyngeal erythema and possibly trace exudate with anterior cervical lymphadenopathy. Will treat empirically with IM Bicillin. Patient stable for discharge home with return precautions. Critical care attestation.: If time is entered above; I have spent that time in minutes in the direct care of this critically ill patient, excluding procedure time. ED Disposition Clinical Impression: Acute pharyngitis Disposition: 01 HOME / SELF CARE / HOMELESS Is pt being admited?: No Condition: Stable Instructions: Pharyngitis Time of Disposition: 17:33
[2022-04-02 15:44] VITALS: BP 143/92
[2022-04-02] MEDS ORDERED: PHENOL 1.4% 177 ML BOTTLE MM PRN (16:33)
[2022-04-02] MEDS ORDERED: PENICILLIN G BENZATHINE 1.2 MILLION UNIT/2 ML INJ IM ONE (17:31)
== END 2022-04-02 18:26 | disposition home or self-care (01) ==
LOC: ED 07:47
DX: J02.9 Acute pharyngitis, unspecified (principal); I10 Essential (primary) hypertension; E11.9 Type 2 diabetes mellitus without complications
CPT/HCPCS: 87116; 87430; 96372; 99283; J0561

== ENCOUNTER 2022-04-22 21:12 | Emergency (ER) | payer BC ==
[2022-04-22 22:35] VITALS: BP 96/45
== END 2022-04-23 08:00 | disposition left against medical advice (07) ==
LOC: ED 21:12
DX: I10 Essential (primary) hypertension (principal); E86.0 Dehydration; Z53.21 Procedure and treatment not carried out due to patient leaving prior to being seen by health care provider